=== PATIENT | male | born 1945 | race African-American/Black ===

== ENCOUNTER 2020-10-16 17:02 | Inpatient (IN) | payer MEDICAID, MEDICARE ==
[~2020-10-16] VITALS: Ht 167.6 cm; Wt 71.2 kg
[~2020-10-16 17:02] MED LIST: JANUVIA50 MG ORAL; METFORMIN HCL500 M1 ORAL; METHADONE HCL10 MG PO; NORVASC5 MG ORAL
--- NOTE | 2020-10-16 17:10 | NUR ---
ED Nurse Note: No available bed at this time. ERMD and charge nurse notified.
--- NOTE | 2020-10-16 17:19 | Emergency Room Report ---
History of Present Illness General Chief Complaint: Altered Level of Consciousness Source: Patient, EMS Present Illness HPI Patient is a 75-year-old male with self-reported history of scabies per EMS has a history of hypertension who presents to the ER for altered mental status. Pat ient is alert and oriented x1 to person. Patient is confused and a poor historian. Per EMS patient lives with his brother states he can no longer care for him and he asked them to take him to the hospital. Patient denies any pain. Unable to obtain further history at this time. Unknown baseline mental status. Allergies: Coded Allergies: No Known Allergies (Unverified , 11/05/14) COVID-19 Screening Contact w/high risk pt: No Experienced COVID-19 symptoms?: No COVID-19 Testing performed ROOFING SUPERINTENDENT: No Patient History Reviewed Nursing Documentation: PMH: Agreed; PSxH: Agreed Nursing Documentation-PMH Past Medical History: Deferred Hx Cardiac Problems: Yes - DRUG ABUSE Hx Hypertension: Yes Hx Cancer: No Hx Gastrointestinal Problems: No Hx Neurological Problems: No Review of Systems All Other Systems: negative except mentioned in HPI Physical Exam Vital Signs Date Time Temp Pulse Resp B/P (MAP) Pulse Ox O2 Delivery O2 Flow Rate FiO2 10/16/20 17:06 99.0 64 16 128/76 (93) 97 Room Air Sp02 EP Interpretation: reviewed, normal General Appearance: no apparent distress, alert, non-toxic, other - GCS 14, Chronically Ill Head: normocephalic, atraumatic Eyes: bilateral eye normal inspection, bilateral eye PERRL ENT: hearing grossly normal, normal pharynx, no angioedema, normal voice, dry mucus membranes Neck: full range of motion, supple, no meningismus Respiratory: no respiratory distress, no accessory muscle use Cardiovascular #1: regular rate, rhythm Gastrointestinal: non tender, soft, no guarding, no rebound Rectal: deferred Musculoskeletal: no calf tenderness Neurologic: manager social responsibility III-XII nml as tested, other - Oriented x1 to person not to place or time Psychiatric: no suicidal/homicidal ideation Skin: no rash Lymphatic: no adenopathy Medical Decision Making Diagnostic Impression: Primary Impression: COVID-19 Additional Impressions: Encephalopathy Acute renal failure ER Course Patient tested positive for COVID-19. Patient's chest x-ray demonstrates no acute cardiopulmonary pathology. Patient's vital signs are stable. His D-dimer is elevated to 1.3 and creatinine is also elevated to 1.4. Patient prophylactically started on heparin. Patient will be admitted for further treatment and evaluation. Laboratory Tests Test 10/16/20 18:25 10/16/20 18:30 10/16/20 20:00 White Blood Count 4.0 K/UL (4.8-10.8) L Red Blood Count 5.61 M/UL (4.70-6.10) Hemoglobin 16.5 G/DL (14.2-18.0) Hematocrit 48.3 % (42.0-52.0) Mean Corpuscular Volume 86 FL (80-99) Mean Corpuscular Hemoglobin 29.4 PG (27.0-31.0) Mean Corpuscular Hemoglobin Concent 34.1 G/DL (32.0-36.0) Red Cell Distribution Width 12.2 % (11.6-14.8) Platelet Count 152 K/UL (150-450) Mean Platelet Volume 12.2 FL (6.5-10.1) H Neutrophils (%) (Auto) 66.0 % (45.0-75.0) Lymphocytes (%) (Auto) 25.3 % (20.0-45.0) Monocytes (%) (Auto) 7.3 % (1.0-10.0) Eosinophils (%) (Auto) 1.0 % (0.0-3.0) Basophils (%) (Auto) 0.5 % (0.0-2.0) Prothrombin Time 12.5 SEC (9.30-11.50) H Prothrombin Time INR 1.1 (0.9-1.1) Activated Partial Thromboplast Time 25 SEC (23-33) D-Dimer 1.29 mg/L FEU (0.00-0.49) H Sodium Level 137 MMOL/L (136-145) Potassium Level 3.8 MMOL/L (3.5-5.1) Chloride Level 100 MMOL/L (98-107) Carbon Dioxide Level 27 MMOL/L (21-32) Anion Gap 11 mmol/L (5-15) Blood Urea Nitrogen 25 mg/dL (7-18) H Creatinine 1.4 MG/DL (0.55-1.30) H Estimated Glomerular Filtration Rate 59.5 mL/min (>60) Glucose Level 255 MG/DL (74-106) H Lactic Acid Level 2.30 mmol/L (0.4-2.0) H Pending Calcium Level 8.7 MG/DL (8.5-10.1) Magnesium Level 2.1 MG/DL (1.8-2.4) Ferritin 673 NG/ML (8-388) H Total Bilirubin 0.6 MG/DL (0.2-1.0) Aspartate Amino Transferase (AST) 49 U/L (15-37) H Alanine Aminotransferase (ALT) 57 U/L (12-78) Alkaline Phosphatase 124 U/L (46-116) H Lactate Dehydrogenase 226 U/L (81-234) Total Creatine Kinase 28 U/L (26-308) Troponin I 0.046 ng/mL (0.000-0.056) C-Reactive Protein, Quantitative 2.9 mg/dL (0.00-0.90) H Pro-B-Type Natriuretic Peptide 334 pg/mL (0-125) H Total Protein 8.0 G/DL (6.4-8.2) Albumin 3.0 G/DL (3.4-5.0) L Globulin 5.0 g/dL Albumin/Globulin Ratio 0.6 (1.0-2.7) L Urine Color Yellow Urine Appearance Slightly cloudy Urine pH 5 (4.5-8.0) Urine Specific [place] 1.020 (1.005-1.035) Urine Protein 3+ (NEGATIVE) H Urine Glucose (UA) 1+ (NEGATIVE) H Urine Ketones 3+ (NEGATIVE) H Urine Blood Negative (NEGATIVE) Urine Nitrite Negative (NEGATIVE) Urine Bilirubin 2+ (NEGATIVE) H Urine Ictotest Negative (NEGATIVE) Urine Urobilinogen 12 MG/DL (0.0-1.0) H Urine Leukocyte Esterase 1+ (NEGATIVE) H Urine RBC 0-2 /HPF (0 - 0) H Urine WBC 5-10 /HPF (0 - 0) H Urine Squamous Epithelial Cells Few /LPF (NONE/OCC) Urine Amorphous Sediment Moderate /LPF (NONE) H Urine Bacteria Moderate /HPF (NONE) H Microbiology Date/Time Source Procedure Growth Status 10/16/20 18:25 Nasopharynx SARS-CoV-2 RdRp Gene Assay - Final Complete 10/16/20 18:25 Nasal Nares - Final Complete 10/16/20 18:25 Nasal Nares - Final Complete EKG Diagnostic Results Troponin ordered: Yes When was troponin ordered?: Oct 16, 2020 EKG Time: 19:20 EP Interpretation: Maria Esther Lyn MD Rate: tachycardiac - 105 bpm Rhythm: other - Sinus tachycardia ST Segments: no acute changes ASA given to the pt in ED: No Rhythm Strip Diag. Results Rhythm Strip Time: 18:52 EP Interpretation: yes - Maria Esther Lyn MD Rate: 99 bpm Rhythm: NSR, no PVC's, no ectopy Chest X-Ray Diagnostic Results Chest X-Ray Diagnostic Results : Chest X-Ray Ordered: Yes # of Views/Limited/Complete: 1 View Indication: Other - Altered mental status EP Interpretation: Yes Interpretation: no consolidation, no effusion, no pneumothorax, no acute cardiopulmonary disease Impression: No acute disease Electronically Signed by: Maria Esther Lyn MD Last Vital Signs Date Time Temp Pulse Resp B/P (MAP) Pulse Ox O2 Delivery O2 Flow Rate FiO2 10/16/20 17:06 99.0 64 16 128/76 (93) 97 Room Air Disposition: ADMITTED INPATIENT - Medical Surgical Floor Condition: Critical Physician Consult: Dr. Mcmanus at 2039 Additional Instructions: Please note that this report is being documented using [employer] technology. This can lead to erroneous entry secondary to incorrect interpretation by the dictating instrument. Maria Esther Lyn M.D. Oct 16, 2020 17:19
[2020-10-16 18:09] VITALS: BP 128/76
--- NOTE | 2020-10-16 18:09 | NUR ---
ED Nurse Note: PT PLACED IN BED 5. ARRIVED WITH RA 68 DUE TO INCREASED ALOC, FROM HOME. FAMILY CALLED EMS. PT NOT GIVEN ANYTHING EN ROUTE. PT AOX 1-2, COOPERATIVE.
--- NOTE | 2020-10-16 18:40 | NUR ---
ED Nurse Note: mrsa done at bedside
--- NOTE | 2020-10-16 18:57 | NUR ---
HAND-OFF: Report given to sage marsh.
--- NOTE | 2020-10-16 19:00 | NUR ---
ED Nurse Note: Report received from BEVERLY Lunsford. Patient is in bed with eyes closed. Breathing is normal and even.
[2020-10-16 19:06] LABS: INR 1.1 (0.9-1.1)
[2020-10-16 19:10] LABS: BASOPHILS % (AUTO) 0.5 % (0.0-2.0); HEMATOCRIT 48.3 % (42.0-52.0); HEMOGLOBIN 16.5 G/DL (14.2-18.0); LYMPHOCYTES % (AUTO) 25.3 % (20.0-45.0); MEAN CORPUSCULAR VOLUME 86 FL (80-99); MONOCYTES % (AUTO) 7.3 % (1.0-10.0); PLATELET COUNT 152 K/UL (150-450); RED BLOOD COUNT 5.61 M/UL (4.70-6.10); RED CELL DISTRIBUTION WIDTH 12.2 % (11.6-14.8)
[2020-10-16 19:13] LABS: ANION GAP 11 mmol/L (5-15); BLOOD UREA NITROGEN 25 mg/dL (7-18); CALCIUM 8.7 MG/DL (8.5-10.1); CARBON DIOXIDE 27 MMOL/L (21-32); CHLORIDE 100 MMOL/L (98-107); CREATININE 1.4 MG/DL (0.55-1.30); POTASSIUM 3.8 MMOL/L (3.5-5.1); SODIUM 137 MMOL/L (136-145)
[2020-10-16 19:23] LABS: ALANINE AMINOTRANSFERASE 57 U/L (12-78); ALBUMIN/GLOBULIN RATIO 0.6 (1.0-2.7); ALKALINE PHOSPHATASE 124 U/L (46-116); ASPARTATE AMINO TRANSFERASE 49 U/L (15-37); BILIRUBIN,TOTAL 0.6 MG/DL (0.2-1.0); CREATINE KINASE 28 U/L (26-308)
[2020-10-16] MEDS ORDERED: Dyna-Hex 2% Top Sol 2oz TOPIC ONE (19:30)
[2020-10-16 19:59] VITALS: BP 145/107
--- NOTE | 2020-10-16 19:59 | NUR ---
ED Nurse Note: Repeat lactic drawn and sent to lab.
[2020-10-16 20:04] LABS: APPEARANCE,URINE SLIGHTLY CLOUDY; BILIRUBIN, URINE 2+ (NEGATIVE); GLUCOSE, URINE (UA) 1+ (NEGATIVE); KETONES,URINE 3+ (NEGATIVE); LEUKOCYTE ESTERASE ,URINE 1+ (NEGATIVE); NITRITE,URINE NEGATIVE (NEGATIVE); PH,URINE 5 (4.5-8.0); PROTEIN,URINE 3+ (NEGATIVE); UROBILINOGEN,URINE 12 MG/DL (0.0-1.0)
[2020-10-16 20:05] LABS: COLOR,URINE YELLOW
--- NOTE | 2020-10-16 20:13 | Diagnostic Imaging Report ---
EXAM: CT Head Without Intravenous Contrast CLINICAL HISTORY: AMS TECHNIQUE: Axial computed tomography images of the head/brain without intravenous contrast. CTDI is 53.40 mGy and DLP is 1072.20 mGy-cm. One or more of the following dose reduction techniques were used: automated exposure control, adjustment of the mA and/or kV according to patient size, use of iterative reconstruction technique. COMPARISON: Head CT 11/05/2014 FINDINGS: Brain: No intracranial hemorrhage, mass-effect, or edema. Global parenchymal atrophy and mild chronic microvascular ischemic changes. Ventricles: Unremarkable. Bones/joints: Unremarkable. No fracture. Soft tissues: Unremarkable. Sinuses: Unremarkable as visualized. Mastoid air cells: Unremarkable as visualized. IMPRESSION: 1. No acute intracranial abnormality. 2. Global parenchymal atrophy and mild chronic microvascular ischemic changes.
[2020-10-16] MEDS ORDERED: cefTRIAXone 1 GM in NS 55 ML IVPB ONE (20:45)
[2020-10-16] MEDS ORDERED: Heparin 5000 units/ml inj IV ONE (20:45)
[2020-10-16] MEDS ORDERED: Heparin 25,000u/D5W 500ml 500 ML IV SCH (20:45)
--- NOTE | 2020-10-16 21:30 | NUR ---
ED Nurse Note: Patient is resting in bed, breathing is normal. Repositioned patient for comfort. Safety measures remain in place.
[2020-10-16 22:00] VITALS: BP 145/87
--- NOTE | 2020-10-16 23:00 | NUR ---
ED Nurse Note: Patient is stable for transfer to med surg unit at this time. Patient is awake and alert, verbally responsive. No change in respiratory status. Patient taken to unit via gurney by yusef and RN. Patient transferred to unit with heparin infusing as ordered. IV is intact. He took belongings with him. No signs of distress at time of transfer to unit.
--- NOTE | 2020-10-16 23:15 | NUR ---
NURSE NOTES: Pt is admitted from ER with DX altered mental status in sable condition.Report received from B[facility]LY Varg[facility]. Vitals: temp 97.8 BP 158/82,HR 105 RR 20; O2 sat 96% room air, no pain. Patient is positive for Covid-19, pt placed on droplet and contact precaution.No cough, fever or shortness of breath. Heparin drip is running. Pt is unable to give history, pt can't tell what medication he is taking. Pt has stage 2 wound on sacrum and excoriation on the scrotum, pictures taken. Dr. Mcmanus will be called for admitting orders. Fall precaution in place, bed alarm on. Bed locked low in position,side rails up and call light within reach. Pt will be monitored.
--- NOTE | 2020-10-16 23:50 | NUR ---
NURSE NOTES: Dr. Mcmanus is called for admitting orders, awaiting call back.
[2020-10-17] VITALS: BP 158/82
[2020-10-17 04:00] VITALS: BP 153/87
--- NOTE | 2020-10-17 06:15 | NUR ---
NURSE NOTES: PTT result 145, [facility] called and instructed to hold heparin drip for an hour then start the heparin drip at 9 unit/kg/hr.
--- NOTE | 2020-10-17 06:17 | NUR ---
NURSE NOTES: Heparin drip resumed after holding an hour at 9 unit/kg/hr Addendum: 10/17/20 at 0800 by KAM LATIF RN RN PTT ordered for 1215pm
--- NOTE | 2020-10-17 06:30 | NUR ---
NURSE NOTES: Dr. Mcmanus called back with admission orders, he ordered to continue heparin drip.
[2020-10-17] MEDS ORDERED: Heparin 25,000u/D5W 500ml 500 ML IV SCH ×2 (07:00→07:45)
--- NOTE | 2020-10-17 07:40 | NUR ---
NURSE HAND-OFF: Important Events on Shift:[Pt on heparin drip] Patient Status: [stable] Diet: [NPO] Pending Orders: [] Pending Results/Labs:[] Pending MD notification:[] Latest Vital Signs: Temperature 96.8 , Pulse 95 , B/P 153 /87 , Respiratory Rate 20 , O2 SAT 96 , Room Air, O2 Flow Rate . Vital Sign Comment: [] Latest Adair Fall Score: 70 Fall Risk: High Risk Safety Measures: Call light Within Reach, Bed Alarm Zone 1, Side Rails Side Rails x2, Bed position Low and Locked. Fall Precautions: Yellow Socks Yellow Gown Door Sign Patient Fall Education Report given to [BEVERLY Mccabe, informed Eliot to monitor heparin drip and have the PTT collected at 1215pm].
--- NOTE | 2020-10-17 07:48 | NUR ---
NURSE NOTES: Received report from BEVERLY Garcia. Patient seen in bed, AAOx2 with episodes of confusion. Patient able to state his name and where he is ,but unable to comprehend other instructions. Patient on room air, breathing is even and unlabored with no SOb noted at this time. Patient has a condom cath, draining yellow urine well via gravity. Iv site patent and intact. patient currently on heparin drip with PTT lab draw at 1215. Bed is locked and placed in lowest position with bed alarm on. Call light within reach. Will continue to monitor
[2020-10-17 08:00] VITALS: BP 158/90
--- NOTE | 2020-10-17 08:46 | Diagnostic Imaging Report ---
Indication: Chest pain Technique: One view of the chest Comparison: none Findings: Lungs and pleural spaces are clear. The heart is borderline enlarged. The aorta is tortuous ectatic and calcified. No significant interim change Impression: No acute process
--- NOTE | 2020-10-17 10:35 | NUR ---
Speech Pathology Note (Bedside Dysphagia Evaluation) Brief Note: Mr. Joe is a 75 year old male admitted from Home for COVID 19 positive. He is currently on room air O2 saturation 98%. DDmier: 1.29, Ferritin: 673, LDH: 226, CRP 2.9 CBC: unremarkable Creatine 1.4 Findings: Mr. Joe is alert and oriented to self and place. He knows it is Tien padmini but he thinks the year is 2001. His speech is clear, voice is normal. He does not have teeth. He stated that he eats without dentures. Given him, pureed , thin liquid he tolerated well. He stated he is ok with pureed for now. Interpretation: 1. Functional swallow Plan: 1. Pureed and thin liquid Chuyita Orellana
--- NOTE | 2020-10-17 10:44 | History and Physical Report ---
DATE OF ADMISSION: 10/16/2020 HISTORY OF PRESENT ILLNESS: This is a 75-year-old male, who came with COVID pneumonia and altered mental status. The patient also was found to have high blood pressure. He is responding now. In the emergency room, he was not responsive. PAST MEDICAL HISTORY: Significant for hypertension and diabetes. MEDICATIONS: He is taking metformin, methadone, Januvia. PHYSICAL EXAMINATION: VITAL SIGNS: Blood pressure is 153/57, pulse 95, respirations 20, temperature 96.8. HEENT: AT/NC. EOMI. PERRLA. NECK: Supple. No JVD. CHEST: Bilaterally decreased breath sounds. CARDIOVASCULAR: Regular rhythm. ABDOMEN: Soft. Positive bowel sounds. Nontender. EXTREMITIES: No edema. : Deferred. LABORATORY DATA: White count 4000, hemoglobin 16. Chemistry panel, sodium 137, potassium 3.8, BUN 25, creatinine 1.4. Glucose 255. Urine is positive wbc [address], no acute intracranial abnormality, global atrophy. Chest x-ray showing no acute process. ASSESSMENT: 1. COVID-19 pneumonia. 2. Altered mental status. 3. Diabetes. 4. Chronic pain syndrome. PLAN: We will admit on isolation and start antibiotics, IV fluid, heparin and continue ceftriaxone. Continue Zithromax. Consider Pulmonary consult and ID consult. Murali Mcmanus M.D. DR: FLORI JOB#: [id number] CC:
[2020-10-17] MEDS: NovoLOG Insulin Flexpen SUBQ SCH ×3 (11:48→22:39)
[2020-10-17 12:00] VITALS: BP 150/83
--- NOTE | 2020-10-17 13:18 | NUR ---
NURSE NOTES: PTT at therapeutic level, per Myrna from pharmacy to keep heparin drip at 9 until tomorrow after 0400 PTT draw
--- NOTE | 2020-10-17 14:30 | Consultation ---
DATE OF CONSULTATION: 10/17/2020 CONSULTING PHYSICIAN: Andrew Smith MD. ATTENDING PHYSICIAN: Murali Mcmanus MD. REASON FOR CONSULTATION: COVID-19, elevated inflammatory markers. HISTORY OF PRESENT ILLNESS: This is a 75-year-old male with past medical history of scabies per EMS, hypertension, and diabetes, who presented to the ER with altered mental status. The patient is confused and a poor historian. The patient is alert and oriented x1 to person. Much of the information is obtained from the ER note and his EMR. Per EMS, the patient lived with his brother, who was no longer able to care for him, so he asked EMS to take him to the hospital. Further history is limited by his altered mental status. On evaluation, the patient appears chronically ill, alert and oriented x1 to person, currently saturating well on room air and denies any headache, chest pain, shortness of breath, cough, fever, nausea, vomiting, diarrhea. Chest x-ray showed no acute process. Head CT showed no acute intracranial abnormality, however, revealed global parenchymal atrophy and mild chronic microvascular ischemic changes. Initial laboratory studies showed mild leukocytosis, elevated lactic acid, elevated BUN and creatinine, hyperglycemia, elevated AST, elevated alkaline phosphatase, elevated BNP. Urinalysis notable for possible UTI. The patient was positive for COVID-19 with rapid test. The patient received prophylactic heparin drip due to elevated D-dimer and CRP. The patient is now admitted to the hospital for further workup. PAST MEDICAL HISTORY: Hypertension, diabetes mellitus, scabies. MEDICATIONS: Amlodipine, metformin, methadone, sitagliptin. ALLERGIES: No known allergies. FAMILY HISTORY: Unknown. PERSONAL/SOCIAL HISTORY: Lives with his brother. REVIEW OF SYSTEMS: Negative except mentioned in HPI. PHYSICAL EXAMINATION: VITAL SIGNS: Blood pressure 158/93, heart rate 90, respiratory rate 20, weight 71 kg, height 167 cm. HEENT: Head exam reveals that the head is normocephalic, atraumatic without deformity or unusual swelling. Pupils are PERRLA. CHEST AND LUNGS: Reveals clear, normal, symmetrical breath sounds with no adventitious sounds. CARDIOVASCULAR: Reveals normal S1, S2 without murmurs, rubs, or clicks. ABDOMEN: Soft with no tenderness or organomegaly. RECTAL: Deferred. MUSCULOSKELETAL: There is no tenderness to palpation. Range of motion is normal. NEUROLOGICAL: Alert and oriented x1 to person. SKIN: Hyperpigmentation on his right cheek. LABORATORY DATA: Laboratory testing shows WBC 4.0, hemoglobin 16.5. Chemistry show BUN 25, creatinine 1.4, A1c 9.0, CRP 2.9. Coag panel shows D-dimer 1.29. IMPRESSION: 1. COVID-19 infection with fever. -the patient is currently saturating well on room air. -chest x-ray shows no acute findings. -given his normoxemia with clear chest x-ray findings, he does not need specific therapy for COVID-19 at this point. -monitor for hypoxia, provide supplemental oxygen as needed. 2. Possible UTI. -on Rocephin. 3. Elevated inflammatory markers, D-dimer, CRP. -on empiric heparin drip. 4. ANA. -continue IV fluids. -trend BUN and creatinine. 5. Hyperglycemia. -recommend continuing his metformin. -monitor blood glucose. 6. Hypertension. -recommend continuing his amlodipine. -monitor BP. The care for this patient was discussed with my supervising physician. Time spent for this case was approximately 31 minutes. Andrew Smith M.D. L[place]ON Tsai DR: MAYRA/ZOË JOB#: [id number] CC: SAY
--- NOTE | 2020-10-17 15:00 | NUR ---
NURSE NOTES:WOUND CARE NOTES:Pt presented on admission with multiple Pressure Injuries. Scrotum is erythematous with multiple Partial thickness Pressure Injuries.at base of scrotum. Two Partial thickness Pressure injuries at Sacrum that in in close Proximity(L)4.5cm x (W)6cm. Surrounding wounds is maroon but without induration or fluctuance. Site tender when minimally palpated. Both heels are are firm and easily blanchable. Tx.Plan: Apply Moisture Barrier Paste to Scrotum with each incontinence care. Apply Moisture Barrier Paste to Sacrum. Cover with Optifoam drsg. Change every 3 days and prn. Apply Cavilon Skin Barrier to both heels. Cover each heel with Optifoam drsg . Change every 7 days and prn. Reposition at least every 2hours or as tolerated. Off-load heels with pillow.
--- NOTE | 2020-10-17 15:32 | NUR ---
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 CC: ALOC for unknown amount of time. SI: COVD-19 Temp 99, HR 62, RR-16, BP 128/76 WBC 4.0L, Lactic Acid 2.3 troponin .046, BUN 25, Creatitine 1.4H, Glucose 255 U/A UR leukocyte esterase 1+, WBC 5-10, Bacteria Moderate H IS: Rocephin IV qhs Heparin IV adjust per protocol admit to Med-Surg 403-2 med/surg status DCP: Pending hospitalization Addendum: 10/17/20 at 1548 by KIAN AGUILAR CM ADD UTI to SI:
[2020-10-17 16:00] VITALS: BP 143/80
[2020-10-17] MEDS: metFORMIN 500mg tab ORAL SCH (17:26)
--- NOTE | 2020-10-17 19:15 | Consultation ---
DATE OF CONSULTATION: 10/17/2020 INFECTIOUS DISEASE CONSULTATION This consult is for coverage of Dr. Holliday. CONSULTING PHYSICIAN: David Gordon MD PRIMARY ATTENDING: Gonzales Mcmanus MD REASON FOR CONSULTATION: COVID-19 positive test, pyuria, UTI. HISTORY OF PRESENT ILLNESS: This 75-year-old male admitted yesterday with altered mental status. Patient was confused. He was positive for COVID test. PAST MEDICAL HISTORY: Significant for diabetes mellitus, hypertension. ALLERGIES: No known drug allergies. MEDICATIONS: Getting ceftriaxone, metformin, clonidine, insulin aspart, heparin. SOCIAL HISTORY: . No other history obtainable by the patient. PHYSICAL EXAMINATION: VITAL SIGNS: Temperature 98, pulse 100, blood pressure 168/98. Patient is on room air oxygen and O2 saturation is 97%. GENERAL APPEARANCE: No acute distress. HEART: Tachycardic. LUNGS: Clear. ABDOMEN: Soft, nontender. EXTREMITIES: No edema. NEUROLOGIC: Sleeping. LABORATORY AND DIAGNOSTIC DATA: WBC 4000, hemoglobin 16.5, hematocrit 48.3, platelets 152. Sodium 138, potassium 3.8, chloride 100, bicarb 27, BUN 25, creatinine 1.4, glucose is 255. Chest x-ray was negative. UA showed wbc's of 5 to 10, moderate bacteria, leukocyte esterase 1+, bilirubin 2+, ketones 3+. CT scan of the head, no acute intracranial abnormality. Global atrophy. IMPRESSION: COVID-19 disease, chest x-ray so far is negative. Patient is on room air oxygen. Pyuria. May have UTI. Has acute renal failure, encephalopathy, diabetes mellitus. Had lactic acidosis at the time of admission. RECOMMENDATION: Continue Rocephin and follow up the cultures. At the end of my exam, I thank Dr. Mcmanus, for involving me in the care of this patient. David Gordon M.D. DR: MILDRED JOB#: [id number] CC: SAY
--- NOTE | 2020-10-17 19:26 | NUR ---
NURSE HAND-OFF: Important Events on Shift: Heparin drip on 9 units Patient Status: stable Diet: low sodium Pending Orders: n/a Pending Results/Labs:PTT Pending MD notification:n/a Latest Vital Signs: Temperature 98.9 , Pulse 93 , B/P 143 /80 , Respiratory Rate 19 , O2 SAT 95 , Room Air, O2 Flow Rate . Vital Sign Comment: stable Latest Adair Fall Score: 70 Fall Risk: High Risk Safety Measures: Call light Within Reach, Bed Alarm Zone 1, Side Rails Side Rails x2, Bed position Low and Locked. Fall Precautions: Yellow Socks Door Sign Patient Fall Education Report given to BEVERLY Garcia.
[2020-10-17 20:00] VITALS: BP 154/80
--- NOTE | 2020-10-17 20:00 | NUR ---
NURSE NOTES: Pt is in bed, awake and verbal. No acute distress noted. Room air ,vitals stable. Heparin drip running at 9unit/kg/hr. PTT is scheduled for 0400am tomorrow. NS running at 100ml/hr. Pt will be repositioned frequently. Fall precaution in place. Pt will be monitored.
[2020-10-17] MEDS: cefTRIAXone 1 GM in D5W 55 ML IVPB SCH (22:34)
[2020-10-18] VITALS: BP 154/85
[2020-10-18 04:00] VITALS: BP 145/88
--- NOTE | 2020-10-18 05:00 | NUR ---
NURSE NOTE: PTT 134: holding the heparin drip for an hour starting now.
[2020-10-18] MEDS ORDERED: Heparin 25,000u/D5W 500ml 500 ML IV SCH (06:00)
--- NOTE | 2020-10-18 06:00 | NUR ---
NURSE NOTES: Heparin drip resumed at 6unit/kg/hr. Pt is calm and stable.
[2020-10-18] MEDS: NovoLOG Insulin Flexpen SUBQ SCH ×4 (06:14→21:01)
--- NOTE | 2020-10-18 07:05 | NUR ---
NURSE HAND-OFF: Important Events on Shift:[] Patient Status: [Stable] Diet: [] Pending Orders: [] Pending Results/Labs:[] Pending MD notification:[] Latest Vital Signs: Temperature 98.6 , Pulse 88 , B/P 145 /88 , Respiratory Rate 18 , O2 SAT 94 , Room Air, O2 Flow Rate . Vital Sign Comment: [] Latest Adair Fall Score: 70 Fall Risk: High Risk Safety Measures: Call light Within Reach, Bed Alarm Zone 1, Side Rails Side Rails x2, Bed position Low and Locked. Fall Precautions: Yellow Socks Door Sign Patient Fall Education Report given to [BEVERLY Mccabe, informed to monitor the heparin drip and collect PTT at noon ].
--- NOTE | 2020-10-18 07:19 | NUR ---
NURSE NOTES: Received report from BEVERLY Garcia. Patient seen in bed, AAOx2 with episodes of confusion. Patient able to state his name and where he is ,but unable to comprehend other instructions. Patient on room air, breathing is even and unlabored with no SOb noted at this time. Patient has a condom cath, draining yellow urine well via gravity. Iv site patent and intact. patient currently on heparin drip @6 units with PTT lab draw due @ 1200. Bed is locked and placed in lowest position with bed alarm on. Call light within reach. Will continue to monitor
[2020-10-18 08:00] VITALS: BP 163/100
[2020-10-18] MEDS: metFORMIN 500mg tab ORAL SCH ×2 (08:27→17:09)
--- NOTE | 2020-10-18 08:50 | Pulmonology Progress Note ---
Subjective ROS Limited/Unobtainable: Yes Interval Events: confused Allergies: Coded Allergies: No Known Allergies (Unverified , 11/05/14) Objective Last 24 Hour Vital Signs Date Time Temp Pulse Resp B/P (MAP) Pulse Ox O2 Delivery O2 Flow Rate FiO2 10/18/20 08:27 80 163/100 10/18/20 08:27 163/100 10/18/20 08:00 97.0 80 19 163/100 (121) 95 10/18/20 04:00 98.6 88 18 145/88 (107) 94 10/18/20 00:00 98.2 82 18 154/85 (108) 94 10/17/20 21:00 Room Air 10/17/20 20:00 98.5 87 18 154/80 (104) 95 10/17/20 16:00 98.9 93 19 143/80 (101) 95 10/17/20 13:09 169/98 10/17/20 12:00 98.0 100 20 150/83 (105) 97 10/17/20 09:42 90 158/93 10/17/20 09:00 Room Air Intake and Output 10/17/20 10/18/20 19:00 07:00 Intake Total 100 ml 1255 ml Output Total 600 ml 250 ml Balance -500 ml 1005 ml IV Total 100 ml 1255 ml Output Urine Total 600 ml 250 ml # Voids 2 # Bowel Movements 1 Objective 10/18 saturating well on RA General Appearance: WD/WN HEENT: atraumatic Respiratory: lungs clear Cardiovascular: normal rate, regular rhythm Abdomen: soft, non tender Microbiology Date/Time Source Procedure Growth Status 10/16/20 18:25 Nasopharynx SARS-CoV-2 RdRp Gene Assay - Final Complete 10/16/20 18:25 Nasal Nares - Final Complete 10/16/20 18:25 Nasal Nares - Final Complete Laboratory Tests 10/17/20 11:58: Activated Partial Thromboplast Time 76H 10/17/20 21:58: POC Whole Blood Glucose 196H 10/18/20 04:07: Activated Partial Thromboplast Time 134H Current Medications Medications (Trade) Dose Ordered Sig/Ian Route PRN Reason Start Time Stop Time Status Last Admin Dose Admin Acetaminophen (Tylenol) 650 mg Q4H PRN ORAL Temp >100.5 10/17/20 13:30 11/16/20 13:29 Amlodipine Besylate (Norvasc) 10 mg DAILY ORAL 10/18/20 09:00 11/17/20 08:59 10/18/20 08:27 Ceftriaxone Sodium 1 gm/ Dextrose 55 ml @ 110 mls/hr QHS IVPB 10/17/20 21:00 10/24/20 20:59 10/17/20 22:34 Clonidine HCl (Catapres Tab) 0.1 mg Q6H PRN ORAL For High Blood Pressure 10/17/20 13:15 01/15/21 13:14 10/18/20 08:27 Dextrose (Dextrose 50%) 25 ml Q30M PRN IV Hypoglycemia 10/17/20 10:00 01/15/21 09:59 Dextrose (Dextrose 50%) 50 ml Q30M PRN IV Hypoglycemia 10/17/20 10:00 01/15/21 09:59 Heparin Sodium/ Dextrose 500 ml @ 8.544 mls/ hr ADJUST PER PROTOCOL IV 10/18/20 06:00 11/17/20 05:59 10/18/20 06:12 Insulin Aspart (NovoLOG) BEFORE MEALS AND HS SUBQ 10/17/20 11:30 01/15/21 11:29 10/17/20 22:39 Metformin HCl (Glucophage) 500 mg BID ORAL 10/17/20 18:00 11/16/20 17:59 10/18/20 08:27 Sodium Chloride 1,000 ml @ 100 mls/hr Q10H IV 10/17/20 08:00 11/16/20 07:59 10/18/20 04:00 Assessment/Plan Assessment/Plan 1. COVID-19 infection with fever. -the patient is currently saturating well on room air. -chest x-ray shows no acute findings. -given his normoxemia with clear chest x-ray findings, he does not need specific therapy for COVID-19 at this point. -monitor for hypoxia, provide supplemental oxygen as needed. 2. Possible UTI. -on Rocephin. 3. Elevated inflammatory markers, D-dimer, CRP. -on empiric heparin drip. 4. ANA. -continue IV fluids. -trend BUN and creatinine. 5. Hyperglycemia. - On metformin. - monitor blood glucose. 6. Hypertension. -On amlodipine. - needs better control The care for this patient was discussed with my supervising physician. time spent for this case was approximately 31 minutes. Olayinka Lopez Oct 18, 2020 08:50 Andrew Smith MD Oct 18, 2020 11:24
[2020-10-18 12:00] VITALS: BP 147/75
--- NOTE | 2020-10-18 12:43 | NUR ---
NURSE NOTES: PTT came out 42, RN spoke to Jason from pharmacy to increase dose to 10 units/hr as well as heparin 5000 ml bolus. Scheduled PTT draw in 6 hours
[2020-10-18] MEDS: Heparin 25,000u/D5W 500ml 500 ML IV SCH (12:52)
[2020-10-18] MEDS ORDERED: Heparin 5000 units/ml inj IV SCH (13:00)
--- NOTE | 2020-10-18 13:46 | General Progress Note ---
Subjective Constitutional: Reports: no symptoms HEENT: Reports: no symptoms Cardiovascular: Reports: no symptoms Respiratory: Reports: cough Gastrointestinal/Abdominal: Reports: no symptoms Genitourinary: Reports: no symptoms Neurologic/Psychiatric: Reports: no symptoms Endocrine: Reports: no symptoms Allergies: Coded Allergies: No Known Allergies (Unverified , 11/05/14) Objective Last 24 Hour Vital Signs Date Time Temp Pulse Resp B/P (MAP) Pulse Ox O2 Delivery O2 Flow Rate FiO2 10/18/20 12:00 97.6 83 19 147/75 (99) 96 10/18/20 09:00 Room Air 10/18/20 08:27 80 163/100 10/18/20 08:27 163/100 10/18/20 08:00 97.0 80 19 163/100 (121) 95 10/18/20 04:00 98.6 88 18 145/88 (107) 94 10/18/20 00:00 98.2 82 18 154/85 (108) 94 10/17/20 21:00 Room Air 10/17/20 20:00 98.5 87 18 154/80 (104) 95 10/17/20 16:00 98.9 93 19 143/80 (101) 95 Intake and Output 10/17/20 10/18/20 19:00 07:00 Intake Total 100 ml 1255 ml Output Total 600 ml 250 ml Balance -500 ml 1005 ml IV Total 100 ml 1255 ml Output Urine Total 600 ml 250 ml # Voids 2 # Bowel Movements 1 Laboratory Tests 10/17/20 21:58: POC Whole Blood Glucose 196H 10/18/20 04:07: Activated Partial Thromboplast Time 134H 10/18/20 11:20: POC Whole Blood Glucose 185H 10/18/20 12:00: Activated Partial Thromboplast Time 42H Height (Feet): 5 Height (Inches): 6.00 Weight (Pounds): 200 General Appearance: alert EENT: PERRL/EOMI Neck: supple Cardiovascular: regular rhythm Respiratory/Chest: lungs clear Abdomen: non tender, soft Extremities: non-tender 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
[2020-10-18 16:00] VITALS: BP 144/57
--- NOTE | 2020-10-18 17:09 | Infectious Diseases Prog Note ---
Assessment/Plan Assessment/Plan IMPRESSION: COVID-19 disease, chest x-ray so far is negative. Pyuria. May have UTI. Acute renal failure, Encephalopathy, Diabetes mellitus. Lactic acidosis RECOMMENDATION: Continue Rocephin Will follow up the cultures. Subjective ROS Limited/Unobtainable: Yes Allergies: Coded Allergies: No Known Allergies (Unverified , 11/05/14) Objective Last 24 Hour Vital Signs Date Time Temp Pulse Resp B/P (MAP) Pulse Ox O2 Delivery O2 Flow Rate FiO2 10/18/20 16:00 98.6 86 19 144/57 (86) 94 10/18/20 12:00 97.6 83 19 147/75 (99) 96 10/18/20 09:00 Room Air 10/18/20 08:27 80 163/100 10/18/20 08:27 163/100 10/18/20 08:00 97.0 80 19 163/100 (121) 95 10/18/20 04:00 98.6 88 18 145/88 (107) 94 10/18/20 00:00 98.2 82 18 154/85 (108) 94 10/17/20 21:00 Room Air 10/17/20 20:00 98.5 87 18 154/80 (104) 95 Height (Feet): 5 Height (Inches): 6.00 Weight (Pounds): 200 HEENT: mucous membranes moist Respiratory/Chest: other - oxygen by nasal cannula Cardiovascular: normal rate Abdomen: soft, non tender Extremities: no edema Neurologic/Psychiatric: other - sleeping Microbiology Date/Time Source Procedure Growth Status 10/16/20 18:25 Nasopharynx SARS-CoV-2 RdRp Gene Assay - Final Complete 10/16/20 18:25 Nasal Nares - Final Complete 10/16/20 18:25 Nasal Nares - Final Complete Laboratory Tests Test 10/17/20 21:58 10/18/20 04:07 10/18/20 11:20 10/18/20 12:00 POC Whole Blood Glucose 196 MG/DL (74-106) H 185 MG/DL (74-106) H Activated Partial Thromboplast Time 134 SEC (23-33) H 42 SEC (23-33) H Current Medications Medications (Trade) Dose Ordered Sig/Ian Route PRN Reason Start Time Stop Time Status Last Admin Dose Admin Acetaminophen (Tylenol) 650 mg Q4H PRN ORAL Temp >100.5 10/17/20 13:30 11/16/20 13:29 Amlodipine Besylate (Norvasc) 10 mg DAILY ORAL 10/18/20 09:00 11/17/20 08:59 10/18/20 08:27 Ceftriaxone Sodium 1 gm/ Dextrose 55 ml @ 110 mls/hr QHS IVPB 10/17/20 21:00 10/24/20 20:59 10/17/20 22:34 Clonidine HCl (Catapres Tab) 0.1 mg Q6H PRN ORAL For High Blood Pressure 10/17/20 13:15 01/15/21 13:14 10/18/20 08:27 Dextrose (Dextrose 50%) 25 ml Q30M PRN IV Hypoglycemia 10/17/20 10:00 01/15/21 09:59 Dextrose (Dextrose 50%) 50 ml Q30M PRN IV Hypoglycemia 10/17/20 10:00 01/15/21 09:59 Heparin Sodium/ Dextrose 500 ml @ 14.24 mls/ hr ADJUST PER PROTOCOL IV 10/18/20 13:00 11/17/20 12:59 10/18/20 12:52 Insulin Aspart (NovoLOG) BEFORE MEALS AND HS SUBQ 10/17/20 11:30 01/15/21 11:29 10/18/20 16:27 Metformin HCl (Glucophage) 500 mg BID ORAL 10/17/20 18:00 11/16/20 17:59 10/18/20 08:27 Sodium Chloride 1,000 ml @ 100 mls/hr Q10H IV 10/17/20 08:00 11/16/20 07:59 10/18/20 13:01 David Gordon MD Oct 18, 2020 17:09
--- NOTE | 2020-10-18 19:20 | NUR ---
NURSE NOTES: RECEIVED PATIENT FROM BEVERLY AREVALO. PATIENT IS AWAKE, CALM, RESTING IN BED, AAOX2, ON ROOM AIR, NO ACUTE DISTRESS OR RESPIRATORY DISTRESS NOTED. WOUND DRESSINGS INTACT. PIV INTACT AND PATENT, LEFT ARM RUNNING HEPARIN AT 10 UNIT/KG/HR, AND ON RIGHT ARM RUNNING NS AT 100ML/HR. BED IS LOCKED AND LOW, BED ALARMS ACTIVE, SIDE RAILS UPX2 AND CALL LIGHT IS WITHIN REACH. WILL CONTINUE TO MONITOR CLOSELY.
--- NOTE | 2020-10-18 19:34 | NUR ---
NURSE HAND-OFF: Important Events on Shift: heparin drip running 6 units Patient Status: stable Diet: low sodium Pending Orders: n/a Pending Results/Labs:PTT Pending MD notification:n/a Latest Vital Signs: Temperature 98.6 , Pulse 86 , B/P 144 /57 , Respiratory Rate 19 , O2 SAT 94 , Room Air, O2 Flow Rate . Vital Sign Comment: stable Latest Adair Fall Score: 70 Fall Risk: High Risk Safety Measures: Call light Within Reach, Bed Alarm Zone 1, Side Rails Side Rails x2, Bed position Low and Locked. Fall Precautions: Yellow Socks Door Sign Patient Fall Education Report given to BEVERLY Simon.
[2020-10-18 20:00] VITALS: BP 156/86
[2020-10-18] MEDS: cefTRIAXone 1 GM in D5W 55 ML IVPB SCH (20:57)
[2020-10-19] VITALS: BP 156/93
[2020-10-19 04:00] VITALS: BP 182/93
[2020-10-19] MEDS: NovoLOG Insulin Flexpen SUBQ SCH ×4 (06:30→21:00)
--- NOTE | 2020-10-19 07:16 | NUR ---
NURSE NOTES: Received report from Aurora, RN. Patient seen in bed, AAOx2 with episodes of confusion. Patient able to state his name and where he is. Patient on room air, breathing is even and unlabored with no SOb noted at this time. Patient has a condom cath, draining yellow urine well via gravity. Iv site patent and intact. patient currently on heparin drip @10 units. recent PTT result was therapeutic per Aurora, RN. Drip continued @ 10units. Bed is locked and placed in lowest position with bed alarm on. Call light within reach. Will continue to monitor
--- NOTE | 2020-10-19 07:32 | NUR ---
HAND-OFF: Report given to BEVERLY Mccabe.NURSE NOTES:
[2020-10-19 08:00] VITALS: BP 158/79
[2020-10-19] MEDS: metFORMIN 500mg tab ORAL SCH ×2 (08:41→17:30)
[2020-10-19 12:00] VITALS: BP 149/70
--- NOTE | 2020-10-19 12:22 | Pulmonology Progress Note ---
Subjective ROS Limited/Unobtainable: Yes Interval Events: confused Allergies: Coded Allergies: No Known Allergies (Unverified , 11/05/14) Objective Last 24 Hour Vital Signs Date Time Temp Pulse Resp B/P (MAP) Pulse Ox O2 Delivery O2 Flow Rate FiO2 10/19/20 12:00 97.0 80 18 149/70 (96) 96 10/19/20 09:00 Room Air 10/19/20 08:42 83 158/80 10/19/20 08:00 97.2 85 18 158/79 (105) 97 10/19/20 06:31 182/93 10/19/20 04:00 97.2 86 17 182/93 (122) 97 10/19/20 00:00 97.5 83 17 156/93 (114) 96 10/18/20 21:00 Room Air 10/18/20 20:00 96.4 86 17 156/86 (109) 95 10/18/20 16:00 98.6 86 19 144/57 (86) 94 Intake and Output 10/18/20 10/19/20 19:00 07:00 Intake Total 114.24 ml 566.96 ml Output Total 1000 ml 1300 ml Balance -885.76 ml -733.04 ml IV Total 114.24 ml 566.96 ml Output Urine Total 1000 ml 1300 ml General Appearance: WD/WN HEENT: atraumatic Respiratory: lungs clear Cardiovascular: normal rate, regular rhythm Abdomen: soft, non tender Microbiology Date/Time Source Procedure Growth Status 10/16/20 18:30 Urine,Clean Catch Urine Culture - Preliminary NO GROWTH Resulted 10/16/20 18:25 Nasopharynx SARS-CoV-2 RdRp Gene Assay - Final Complete 10/16/20 18:25 Nasal Nares - Final Complete 10/16/20 18:25 Nasal Nares - Final Complete Laboratory Tests 10/18/20 18:45: Activated Partial Thromboplast Time 93H 10/19/20 04:00: Activated Partial Thromboplast Time 69H 10/19/20 06:33: POC Whole Blood Glucose 137H Current Medications Medications (Trade) Dose Ordered Sig/Ian Route PRN Reason Start Time Stop Time Status Last Admin Dose Admin Acetaminophen (Tylenol) 650 mg Q4H PRN ORAL Temp >100.5 10/17/20 13:30 11/16/20 13:29 Amlodipine Besylate (Norvasc) 10 mg DAILY ORAL 10/18/20 09:00 11/17/20 08:59 10/19/20 08:42 Ceftriaxone Sodium 1 gm/ Dextrose 55 ml @ 110 mls/hr QHS IVPB 10/17/20 21:00 10/24/20 20:59 10/18/20 20:57 Clonidine HCl (Catapres Tab) 0.1 mg Q6H PRN ORAL For High Blood Pressure 10/17/20 13:15 01/15/21 13:14 10/19/20 06:31 Dextrose (Dextrose 50%) 25 ml Q30M PRN IV Hypoglycemia 10/17/20 10:00 01/15/21 09:59 Dextrose (Dextrose 50%) 50 ml Q30M PRN IV Hypoglycemia 10/17/20 10:00 01/15/21 09:59 Heparin Sodium/ Dextrose 500 ml @ 14.24 mls/ hr ADJUST PER PROTOCOL IV 10/18/20 13:00 11/17/20 12:59 10/18/20 12:52 Insulin Aspart (NovoLOG) BEFORE MEALS AND HS SUBQ 10/17/20 11:30 01/15/21 11:29 10/19/20 11:40 Metformin HCl (Glucophage) 500 mg BID ORAL 10/17/20 18:00 11/16/20 17:59 10/19/20 08:41 Sodium Chloride 1,000 ml @ 100 mls/hr Q10H IV 10/17/20 08:00 11/16/20 07:59 10/19/20 09:51 Assessment/Plan Assessment/Plan 1. COVID-19 infection with fever. -the patient is currently saturating well on room air. -chest x-ray shows no acute findings. -given his normoxemia with clear chest x-ray findings, he does not need specific therapy for COVID-19 at this point. -monitor for hypoxia, provide supplemental oxygen as needed. 2. Possible UTI. -on Rocephin. 3. Elevated inflammatory markers, D-dimer, CRP. -on empiric heparin drip. 4. ANA. -continue IV fluids. -trend BUN and creatinine. 5. Hyperglycemia. - On metformin. - monitor blood glucose. 6. Hypertension. -On amlodipine. Andrew Smith MD Oct 19, 2020 12:22
[2020-10-19] MEDS: Heparin 25,000u/D5W 500ml 500 ML IV SCH (12:23)
--- NOTE | 2020-10-19 12:55 | Infectious Diseases Prog Note ---
Assessment/Plan Assessment/Plan IMPRESSION: COVID-19 disease, chest x-ray so far is negative. Pyuria.urine culture: negative Acute renal failure, Encephalopathy, Diabetes mellitus. Lactic acidosis RECOMMENDATION: Discontinue Rocephin Continue isolation Subjective ROS Limited/Unobtainable: Yes Constitutional: Denies: fever Allergies: Coded Allergies: No Known Allergies (Unverified , 11/05/14) Objective Last 24 Hour Vital Signs Date Time Temp Pulse Resp B/P (MAP) Pulse Ox O2 Delivery O2 Flow Rate FiO2 10/19/20 12:00 97.0 80 18 149/70 (96) 96 10/19/20 09:00 Room Air 10/19/20 08:42 83 158/80 10/19/20 08:00 97.2 85 18 158/79 (105) 97 10/19/20 06:31 182/93 10/19/20 04:00 97.2 86 17 182/93 (122) 97 10/19/20 00:00 97.5 83 17 156/93 (114) 96 10/18/20 21:00 Room Air 10/18/20 20:00 96.4 86 17 156/86 (109) 95 10/18/20 16:00 98.6 86 19 144/57 (86) 94 Height (Feet): 5 Height (Inches): 6.00 Weight (Pounds): 200 HEENT: mucous membranes moist Respiratory/Chest: no respiratory distress Cardiovascular: normal rate Abdomen: soft, non tender Extremities: no edema Neurologic/Psychiatric: other - sleeping Microbiology Date/Time Source Procedure Growth Status 10/16/20 18:30 Urine,Clean Catch Urine Culture - Preliminary NO GROWTH Resulted 10/16/20 18:25 Nasopharynx SARS-CoV-2 RdRp Gene Assay - Final Complete 10/16/20 18:25 Nasal Nares - Final Complete 10/16/20 18:25 Nasal Nares - Final Complete Laboratory Tests Test 10/18/20 18:45 10/19/20 04:00 10/19/20 06:33 Activated Partial Thromboplast Time 93 SEC (23-33) H 69 SEC (23-33) H POC Whole Blood Glucose 137 MG/DL (74-106) H Current Medications Medications (Trade) Dose Ordered Sig/Ian Route PRN Reason Start Time Stop Time Status Last Admin Dose Admin Acetaminophen (Tylenol) 650 mg Q4H PRN ORAL Temp >100.5 10/17/20 13:30 11/16/20 13:29 Amlodipine Besylate (Norvasc) 10 mg DAILY ORAL 10/18/20 09:00 11/17/20 08:59 10/19/20 08:42 Ceftriaxone Sodium 1 gm/ Dextrose 55 ml @ 110 mls/hr QHS IVPB 10/17/20 21:00 10/24/20 20:59 10/18/20 20:57 Clonidine HCl (Catapres Tab) 0.1 mg Q6H PRN ORAL For High Blood Pressure 10/17/20 13:15 01/15/21 13:14 10/19/20 06:31 Dextrose (Dextrose 50%) 25 ml Q30M PRN IV Hypoglycemia 10/17/20 10:00 01/15/21 09:59 Dextrose (Dextrose 50%) 50 ml Q30M PRN IV Hypoglycemia 10/17/20 10:00 01/15/21 09:59 Heparin Sodium/ Dextrose 500 ml @ 14.24 mls/ hr ADJUST PER PROTOCOL IV 10/18/20 13:00 11/17/20 12:59 10/19/20 12:23 Insulin Aspart (NovoLOG) BEFORE MEALS AND HS SUBQ 10/17/20 11:30 01/15/21 11:29 10/19/20 11:40 Metformin HCl (Glucophage) 500 mg BID ORAL 10/17/20 18:00 11/16/20 17:59 10/19/20 08:41 Sodium Chloride 1,000 ml @ 100 mls/hr Q10H IV 10/17/20 08:00 11/16/20 07:59 10/19/20 09:51 David Gordon MD Oct 19, 2020 12:55
--- NOTE | 2020-10-19 15:10 | General Progress Note ---
Subjective Constitutional: Reports: malaise Respiratory: Reports: cough Allergies: Coded Allergies: No Known Allergies (Unverified , 11/05/14) Subjective doing ok Objective Last 24 Hour Vital Signs Date Time Temp Pulse Resp B/P (MAP) Pulse Ox O2 Delivery O2 Flow Rate FiO2 10/19/20 12:00 97.0 80 18 149/70 (96) 96 10/19/20 09:00 Room Air 10/19/20 08:42 83 158/80 10/19/20 08:00 97.2 85 18 158/79 (105) 97 10/19/20 06:31 182/93 10/19/20 04:00 97.2 86 17 182/93 (122) 97 10/19/20 00:00 97.5 83 17 156/93 (114) 96 10/18/20 21:00 Room Air 10/18/20 20:00 96.4 86 17 156/86 (109) 95 10/18/20 16:00 98.6 86 19 144/57 (86) 94 Intake and Output 10/18/20 10/19/20 19:00 07:00 Intake Total 114.24 ml 566.96 ml Output Total 1000 ml 1300 ml Balance -885.76 ml -733.04 ml IV Total 114.24 ml 566.96 ml Output Urine Total 1000 ml 1300 ml Laboratory Tests 10/18/20 18:45: Activated Partial Thromboplast Time 93H 10/19/20 04:00: Activated Partial Thromboplast Time 69H 10/19/20 06:33: POC Whole Blood Glucose 137H Height (Feet): 5 Height (Inches): 6.00 Weight (Pounds): 200 General Appearance: alert EENT: PERRL/EOMI Neck: supple Cardiovascular: regular rhythm Respiratory/Chest: crackles/rales Abdomen: non tender, soft Extremities: non-tender Assessment/Plan Assessment/Plan: covid 19 dm dm neuropathy htn waekness cont isolation cont curerent tx Gonzales Mcmanus MD Oct 19, 2020 15:10
[2020-10-19 16:00] VITALS: BP 130/69
--- NOTE | 2020-10-19 19:25 | NUR ---
NURSE HAND-OFF: Important Events on Shift:heparin drip 10 units, PTT tomorrow AM Patient Status: stable Diet: low sodium Pending Orders: n/a Pending Results/Labs:PTT 10/20 Pending MD notification:n/a Latest Vital Signs: Temperature 97.5 , Pulse 87 , B/P 130 /69 , Respiratory Rate 18 , O2 SAT 96 , Room Air, O2 Flow Rate . Vital Sign Comment: stable Latest Adair Fall Score: 70 Fall Risk: High Risk Safety Measures: Call light Within Reach, Bed Alarm Zone 1, Side Rails Side Rails x2, Bed position Low and Locked. Fall Precautions: Yellow Socks Door Sign Patient Fall Education Report given to BEVERLY Garcia.
--- NOTE | 2020-10-19 19:40 | NUR ---
NURSE NOTES: The patient is alert and oriented x2 and does not seem to be in any distress at this time. The Resp is even and unlabored.The patient currently on heparin dwith PTT lab draw due @ 04am. Patient has a condom cath, draining yellow urine under gravity. Iv site left hand 22g is patent and asymptomatic.patent and intact Bed is locked and placed in lowest position with bed alarm on. Call light within reach. Will continue to monitor
[2020-10-19 20:00] VITALS: BP 136/73
[2020-10-20] VITALS: BP 139/81
[2020-10-20] MEDS: Heparin 25,000u/D5W 500ml 500 ML IV SCH (01:36)
[2020-10-20 04:00] VITALS: BP 128/74
[2020-10-20] MEDS ORDERED: Heparin 5000 units/ml inj IV SCH (05:30)
[2020-10-20] MEDS ORDERED: Heparin 25,000u/D5W 500ml 500 ML IV SCH (05:30)
[2020-10-20] MEDS: NovoLOG Insulin Flexpen SUBQ SCH ×4 (06:30→20:53)
--- NOTE | 2020-10-20 07:50 | NUR ---
NURSE NOTES: received report from BEVERLY Garcia. patient alert to name. verbally responsive. no respiratory distress on room air. no pain at this time. IV on RAC running Heparin drip rate at17.08 since 0630. PTT at 1230. IV on LH running NS@100. condom cath draining. yellow. no foul odor. bedbound. bed in the lowest position and locked. call light within reach, alarm on. positive covid. PPE at all times.
--- NOTE | 2020-10-20 07:59 | NUR ---
NURSE HAND-OFF: Important Events on Shift:Alert and oriented x3 Patient Status: Diet: Pending Orders: Pending Results/Labs:PTT] Pending MD notification: Latest Vital Signs: Temperature 98.4 , Pulse 71 , B/P 128 /74 , Respiratory Rate 17 , O2 SAT 95 , Room Air, O2 Flow Rate . Vital Sign Comment: Latest Adair Fall Score: 70 Fall Risk: High Risk Safety Measures: Call light Within Reach, Bed Alarm Zone 1, Side Rails Side Rails x2, Bed position Low and Locked. Fall Precautions: Yellow Socks Door Sign Patient Fall Education Report given to .
[2020-10-20 08:00] VITALS: BP 170/93
[2020-10-20] MEDS: metFORMIN 500mg tab ORAL SCH ×2 (08:59→17:07)
--- NOTE | 2020-10-20 09:53 | Pulmonology Progress Note ---
Subjective ROS Limited/Unobtainable: Yes Interval Events: confused Constitutional: Denies: fever Allergies: Coded Allergies: No Known Allergies (Unverified , 11/05/14) Objective Last 24 Hour Vital Signs Date Time Temp Pulse Resp B/P (MAP) Pulse Ox O2 Delivery O2 Flow Rate FiO2 10/20/20 08:59 91 170/93 10/20/20 08:58 170/93 10/20/20 08:00 97.9 91 18 170/93 (118) 94 10/20/20 04:00 98.4 71 17 128/74 (92) 95 10/20/20 00:00 97.1 79 19 139/81 (100) 98 10/19/20 21:00 Room Air 10/19/20 20:00 97.5 84 20 136/73 (94) 97 10/19/20 16:00 97.5 87 18 130/69 (89) 96 10/19/20 12:00 97.0 80 18 149/70 (96) 96 Intake and Output 10/19/20 10/20/20 19:00 07:00 Intake Total 640 ml 940 ml Output Total 1400 ml 920 ml Balance -760 ml 20 ml Intake Oral 540 ml 240 ml IV Total 100 ml 700 ml Output Urine Total 1400 ml 920 ml # Bowel Movements 1 General Appearance: WD/WN HEENT: atraumatic Respiratory: lungs clear Cardiovascular: normal rate, regular rhythm Abdomen: soft, non tender Laboratory Tests 10/19/20 11:38: POC Whole Blood Glucose 158H 10/19/20 16:26: POC Whole Blood Glucose 181H 10/20/20 04:15: Activated Partial Thromboplast Time 57H 10/20/20 04:52: POC Whole Blood Glucose 136H Current Medications Medications (Trade) Dose Ordered Sig/Ian Route PRN Reason Start Time Stop Time Status Last Admin Dose Admin Acetaminophen (Tylenol) 650 mg Q4H PRN ORAL Temp >100.5 10/17/20 13:30 11/16/20 13:29 Amlodipine Besylate (Norvasc) 10 mg DAILY ORAL 10/18/20 09:00 11/17/20 08:59 10/20/20 08:59 Clonidine HCl (Catapres Tab) 0.1 mg Q6H PRN ORAL For High Blood Pressure 10/17/20 13:15 01/15/21 13:14 10/20/20 08:58 Dextrose (Dextrose 50%) 25 ml Q30M PRN IV Hypoglycemia 10/17/20 10:00 01/15/21 09:59 Dextrose (Dextrose 50%) 50 ml Q30M PRN IV Hypoglycemia 10/17/20 10:00 01/15/21 09:59 Heparin Sodium/ Dextrose 500 ml @ 17.088 mls/ hr ADJUST PER PROTOCOL IV 10/20/20 05:30 11/19/20 05:29 10/20/20 06:29 Insulin Aspart (NovoLOG) BEFORE MEALS AND HS SUBQ 10/17/20 11:30 01/15/21 11:29 10/19/20 16:29 Metformin HCl (Glucophage) 500 mg BID ORAL 10/17/20 18:00 11/16/20 17:59 10/20/20 08:59 Sodium Chloride 1,000 ml @ 100 mls/hr Q10H IV 10/17/20 08:00 11/16/20 07:59 10/20/20 06:15 Assessment/Plan Assessment/Plan Assessment/Plan 1. COVID-19 infection -the patient is currently saturating well With 2L/N/C Sat 94% -chest x-ray shows no acute findings. -given his normoxemia with clear chest x-ray findings, he does not need specific therapy for COVID-19 at this point. -monitor for hypoxia, provide supplemental oxygen as needed. 2. Possible UTI. -on Rocephin. 3. Elevated inflammatory markers, D-dimer, CRP. -on empiric heparin drip. 4. ANA. -continue IV fluids. -trend BUN and creatinine. 5. Hyperglycemia. - On metformin. - monitor blood glucose. 6. Hypertension. -On amlodipine. Marcos Godinez NP Oct 20, 2020 09:53
[2020-10-20 12:00] VITALS: BP 141/82
--- NOTE | 2020-10-20 12:28 | General Progress Note ---
Subjective Allergies: Coded Allergies: No Known Allergies (Unverified , 11/05/14) Subjective doing ok Objective Last 24 Hour Vital Signs Date Time Temp Pulse Resp B/P (MAP) Pulse Ox O2 Delivery O2 Flow Rate FiO2 10/20/20 12:00 98.2 98 18 141/82 (101) 93 10/20/20 09:00 Room Air 10/20/20 08:59 91 170/93 10/20/20 08:58 170/93 10/20/20 08:00 97.9 91 18 170/93 (118) 94 10/20/20 04:00 98.4 71 17 128/74 (92) 95 10/20/20 00:00 97.1 79 19 139/81 (100) 98 10/19/20 21:00 Room Air 10/19/20 20:00 97.5 84 20 136/73 (94) 97 10/19/20 16:00 97.5 87 18 130/69 (89) 96 Intake and Output 10/19/20 10/20/20 19:00 07:00 Intake Total 640 ml 940 ml Output Total 1400 ml 920 ml Balance -760 ml 20 ml Intake Oral 540 ml 240 ml IV Total 100 ml 700 ml Output Urine Total 1400 ml 920 ml # Bowel Movements 1 Laboratory Tests 10/19/20 16:26: POC Whole Blood Glucose 181H 10/20/20 04:15: Activated Partial Thromboplast Time 57H 10/20/20 04:52: POC Whole Blood Glucose 136H 10/20/20 11:33: POC Whole Blood Glucose [Pending] Height (Feet): 5 Height (Inches): 6.00 Weight (Pounds): 200 General Appearance: alert EENT: PERRL/EOMI Neck: supple Cardiovascular: regular rhythm Respiratory/Chest: crackles/rales Abdomen: non tender, soft Extremities: non-tender 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
[2020-10-20 16:00] VITALS: BP 140/79
--- NOTE | 2020-10-20 19:03 | NUR ---
NURSE HAND-OFF: Important Events on Shift:DC heparin drip. CM consult for discharge to SNF. IV fluid Patient Status: weak. alert to name. forgetful and confused. Diet: low sodium pureed moist thin liquid Pending Orders: n/a Pending Results/Labs:n/a Pending MD notification:n/a Latest Vital Signs: Temperature 98.1 , Pulse 66 , B/P 140 /79 , Respiratory Rate 18 , O2 SAT 95 , Room Air, O2 Flow Rate . Vital Sign Comment:episode of HTN. otherwise stable Latest Adair Fall Score: 70 Fall Risk: High Risk Safety Measures: Call light Within Reach, Bed Alarm Zone 1, Side Rails Side Rails x2, Bed position Low and Locked. Fall Precautions: Yellow Socks Door Sign Patient Fall Education Report given to BEVERLY Armstrong.
--- NOTE | 2020-10-20 19:54 | NUR ---
NURSE NOTES: Pt. received from BEVERLY Dior. Pt. AAO x1 to name, breathing even and unlabored on room air, no indications of respiratory distress, no indications of pain. IV left hand 22g with NS at 100cc, IV right AC 20g intact and patent. Bed low and locked, side rails x3 up, bed alarm active, and call light in reach.
[2020-10-20 20:00] VITALS: BP 142/84
[2020-10-21] VITALS: BP 148/89
[2020-10-21 04:00] VITALS: BP 154/102
[2020-10-21] MEDS: NovoLOG Insulin Flexpen SUBQ SCH ×4 (06:14→21:00)
--- NOTE | 2020-10-21 06:55 | NUR ---
NURSE HAND-OFF: Important Events on Shift:[pt. blood sugar stable, pt. verbal and able to communicate needs] Patient Status: stable Diet: low sodium Pending Orders: na Pending Results/Labs:na Pending MD notification:[na] Latest Vital Signs: Temperature 97.7 , Pulse 83 , B/P 154 /102 , Respiratory Rate 17 , O2 SAT 94 , Room Air, O2 Flow Rate . Vital Sign Comment: [stable] Latest Adair Fall Score: 70 Fall Risk: High Risk Safety Measures: Call light Within Reach, Bed Alarm Zone 1, Side Rails Side Rails x2, Bed position Low and Locked. Fall Precautions: Yellow Socks Door Sign Patient Fall Education Report given to .
--- NOTE | 2020-10-21 07:26 | NUR ---
HAND-OFF: Report given to BEVERLY Patel.
[2020-10-21 08:00] VITALS: BP 178/98
[2020-10-21] MEDS: metFORMIN 500mg tab ORAL SCH ×2 (08:55→18:00)
--- NOTE | 2020-10-21 09:05 | Pulmonology Progress Note ---
Subjective ROS Limited/Unobtainable: Yes Interval Events: none major reported per nursing Constitutional: Denies: fever Allergies: Coded Allergies: No Known Allergies (Unverified , 11/05/14) Objective Last 24 Hour Vital Signs Date Time Temp Pulse Resp B/P (MAP) Pulse Ox O2 Delivery O2 Flow Rate FiO2 10/21/20 08:55 92 178/98 10/21/20 08:55 178/98 10/21/20 08:00 98.4 92 18 178/98 (124) 93 10/21/20 04:00 97.7 83 17 154/102 (119) 94 10/21/20 00:00 96.4 80 16 148/89 (108) 93 10/20/20 21:00 Room Air 10/20/20 20:00 97.5 84 16 142/84 (103) 93 10/20/20 16:00 98.1 66 18 140/79 (99) 95 10/20/20 12:00 98.2 98 18 141/82 (101) 93 Intake and Output 10/20/20 10/21/20 19:00 07:00 Intake Total 1680 ml 1360 ml Output Total 600 ml 400 ml Balance 1080 ml 960 ml Intake Oral 480 ml IV Total 1200 ml 1000 ml Other 360 ml Output Urine Total 600 ml 400 ml # Bowel Movements 1 Objective 10/21 no change 10/18 saturating well on RA General Appearance: WD/WN HEENT: atraumatic Respiratory: lungs clear Cardiovascular: normal rate, regular rhythm Abdomen: soft, non tender Laboratory Tests 10/20/20 11:33: POC Whole Blood Glucose [Pending] 10/20/20 12:28: Activated Partial Thromboplast Time 117H Current Medications Medications (Trade) Dose Ordered Sig/Ian Route PRN Reason Start Time Stop Time Status Last Admin Dose Admin Acetaminophen (Tylenol) 650 mg Q4H PRN ORAL Temp >100.5 10/17/20 13:30 11/16/20 13:29 Amlodipine Besylate (Norvasc) 10 mg DAILY ORAL 10/18/20 09:00 11/17/20 08:59 10/21/20 08:55 Clonidine HCl (Catapres Tab) 0.1 mg Q6H PRN ORAL For High Blood Pressure 10/17/20 13:15 01/15/21 13:14 10/21/20 08:55 Dextrose (Dextrose 50%) 25 ml Q30M PRN IV Hypoglycemia 10/17/20 10:00 01/15/21 09:59 Dextrose (Dextrose 50%) 50 ml Q30M PRN IV Hypoglycemia 10/17/20 10:00 01/15/21 09:59 Insulin Aspart (NovoLOG) BEFORE MEALS AND HS SUBQ 10/17/20 11:30 01/15/21 11:29 10/20/20 20:53 Metformin HCl (Glucophage) 500 mg BID ORAL 10/17/20 18:00 11/16/20 17:59 10/21/20 08:55 Sodium Chloride 1,000 ml @ 100 mls/hr Q10H IV 10/17/20 08:00 11/16/20 07:59 10/21/20 03:26 Assessment/Plan Assessment/Plan 1. COVID-19 infection -the patient is currently saturating well on RA -chest x-ray shows no acute findings. -given his normoxemia with clear chest x-ray findings, he does not need specific therapy for COVID-19 at this point. -monitor for hypoxia, provide supplemental oxygen as needed. 2. Possible UTI. - s/p Rocephin. - follow up urine culture showed no growth 3. Elevated inflammatory markers, D-dimer, CRP. -s/p heparin drip. 4. ANA. -on IV fluids. 5. Hyperglycemia. - On metformin. - monitor blood glucose. 6. Hypertension. -On amlodipine. - needs better control dc planning back to SNF; per CM The care for this patient was discussed with my supervising physician Time spent for this case was approximately 31 minutes Olayinka Lopez Oct 21, 2020 09:05
--- NOTE | 2020-10-21 09:30 | NUR ---
CHARGE NURSE NOTE: No signs of distress, or pain noted. Pt needs PT. notified, order obtained. pt had a BM, cleaned, repositioned.
--- NOTE | 2020-10-21 10:18 | NUR ---
RD ASSESSMENT & RECOMMENDATIONS SEE CARE ACTIVITY FOR COMPLETE ASSESSMENT DAILY ESTIMATED NEEDS: Needs based on Pulmonary, wound, DM 66kg abw 25-35 kcals/kg 5189-6205 total kcals 1.25-1.5 g protein/kg 83-99 g total protein 25-30 mL/kg 2240-3284 total fluid mLs NUTRITION DIAGNOSIS: Increased pro needs r/t wound healing as evidenced by partial thickness wound x2. CURRENT DIET: Low Na / puree diet PO DIET RECOMMENDATIONS: Maintain Low Na diet/ texture per ROTOR WINDER ADDITIONAL RECOMMENDATIONS: 1) Add Glucerna 1 tetra TID w/ meals 2) Skin integrity: add TIFFANIE FRUIT PUNCH BID 3) Updated chem panel as able 4) Maintain accurate bed scale wts 5) Snacks in b/w meals as tolerated, 1:1 feeds
--- NOTE | 2020-10-21 10:44 | General Progress Note ---
Subjective Allergies: Coded Allergies: No Known Allergies (Unverified , 11/05/14) Subjective doing ok weakness Objective Last 24 Hour Vital Signs Date Time Temp Pulse Resp B/P (MAP) Pulse Ox O2 Delivery O2 Flow Rate FiO2 10/21/20 08:55 92 178/98 10/21/20 08:55 178/98 10/21/20 08:00 98.4 92 18 178/98 (124) 93 10/21/20 04:00 97.7 83 17 154/102 (119) 94 10/21/20 00:00 96.4 80 16 148/89 (108) 93 10/20/20 21:00 Room Air 10/20/20 20:00 97.5 84 16 142/84 (103) 93 10/20/20 16:00 98.1 66 18 140/79 (99) 95 10/20/20 12:00 98.2 98 18 141/82 (101) 93 Intake and Output 0 10/20/20 10/21/20 19:00 07:00 Intake Total 1680 ml 1360 ml Output Total 600 ml 400 ml Balance 1080 ml 960 ml Intake Oral 480 ml IV Total 1200 ml 1000 ml Other 360 ml Output Urine Total 600 ml 400 ml # Bowel Movements 1 Laboratory Tests 10/20/20 11:33: POC Whole Blood Glucose [Pending] 10/20/20 12:28: Activated Partial Thromboplast Time 117H Height (Feet): 5 Height (Inches): 6.00 Weight (Pounds): 200 General Appearance: alert EENT: PERRL/EOMI Neck: supple Cardiovascular: regular rhythm Respiratory/Chest: crackles/rales Abdomen: non tender, soft Genitourinary/Rectal: other - sacral decubti stage 3-4 Assessment/Plan Assessment/Plan: covid 19 dm dm neuropathy htn waekness sacral decubti wound care cont isolation cont curerent tx Gonzales Esposito cm, MD Oct 21, 2020 10:44
[2020-10-21 12:00] VITALS: BP 163/84
--- NOTE | 2020-10-21 12:00 | NUR ---
NURSE NOTES: Blood sugar checked, 128. No insulin for this parameter. pt does not have an appetite, ate 50% of his breakfast, and 10% of his lunch, was encouraged to eat.
--- NOTE | 2020-10-21 12:03 | Infectious Diseases Prog Note ---
Assessment/Plan Assessment/Plan antibiotics : none A 1. * COVID 19 pneumonia on room air with 95 % saturation 2. diabetes mellitus P 1. continue off antibiotics 2. continue isolation Subjective Constitutional: Denies: fever, chills Respiratory: Denies: shortness of breath, dry cough Gastrointestinal/Abdominal: Denies: nausea, vomiting, diarrhea Musculoskeletal: Denies: pain Allergies: Coded Allergies: No Known Allergies (Unverified , 11/05/14) Objective Last 24 Hour Vital Signs Date Time Temp Pulse Resp B/P (MAP) Pulse Ox O2 Delivery O2 Flow Rate FiO2 10/21/20 08:55 92 178/98 10/21/20 08:55 178/98 10/21/20 08:00 98.4 92 18 178/98 (124) 93 10/21/20 04:00 97.7 83 17 154/102 (119) 94 10/21/20 00:00 96.4 80 16 148/89 (108) 93 10/20/20 21:00 Room Air 10/20/20 20:00 97.5 84 16 142/84 (103) 93 10/20/20 16:00 98.1 66 18 140/79 (99) 95 Height (Feet): 5 Height (Inches): 6.00 Weight (Pounds): 200 Laboratory Tests Test 10/20/20 12:28 10/20/20 16:21 10/20/20 20:47 10/21/20 06:11 Activated Partial Thromboplast Time 117 SEC (23-33) H POC Whole Blood Glucose Pending 149 MG/DL (74-106) H 122 MG/DL (74-106) H Current Medications Medications (Trade) Dose Ordered Sig/Ian Route PRN Reason Start Time Stop Time Status Last Admin Dose Admin Acetaminophen (Tylenol) 650 mg Q4H PRN ORAL Temp >100.5 10/17/20 13:30 11/16/20 13:29 Amlodipine Besylate (Norvasc) 10 mg DAILY ORAL 10/18/20 09:00 11/17/20 08:59 10/21/20 08:55 Clonidine HCl (Catapres Tab) 0.1 mg Q6H PRN ORAL For High Blood Pressure 10/17/20 13:15 01/15/21 13:14 10/21/20 08:55 Dextrose (Dextrose 50%) 25 ml Q30M PRN IV Hypoglycemia 10/17/20 10:00 01/15/21 09:59 Dextrose (Dextrose 50%) 50 ml Q30M PRN IV Hypoglycemia 10/17/20 10:00 01/15/21 09:59 Insulin Aspart (NovoLOG) BEFORE MEALS AND HS SUBQ 10/17/20 11:30 01/15/21 11:29 10/20/20 20:53 Metformin HCl (Glucophage) 500 mg BID ORAL 10/17/20 18:00 11/16/20 17:59 10/21/20 08:55 Sodium Chloride 1,000 ml @ 100 mls/hr Q10H IV 10/17/20 08:00 11/16/20 07:59 10/21/20 03:26 Ashok Holliday MD Oct 21, 2020 12:03
--- NOTE | 2020-10-21 14:41 | NUR ---
DISCHARGE PLANNING PATIENT HAS BEEN REFERRED TO [facility] P [phone] F [phone] S/W NATHANAEL AT [facility] WHO INFORMED THERE ARE NO BEDS AVAILABLE TODAY. ANTICIPATED BED AVAILABILITY FOR 10/22/20. CM TO FOLLOW UP IN AM FOR BED ASSIGNMENT.
[2020-10-21 16:00] VITALS: BP 132/77
--- NOTE | 2020-10-21 16:03 | NUR ---
CASE MANAGEMENT:REVIEW SI;COVID PNEUMONIA. AC KIDNEY FAILURE. 98.4 92 18 178/98 93% ON RA IS;AMLODIPINE PO QD IVF NS @ 100 ML/HR METFORMIN PO BID MED SURG STATUS DCP;FROM HOME PLAN; DC PLANNING TO SNF PATIENT HAS BEEN REFERRED TO AND ACCEPTED AT [facility] PENDING BED AVAILABILITY ANTICIPATED ON 10/22/20
--- NOTE | 2020-10-21 19:32 | NUR ---
NURSE NOTES: received report from sage chowdary. patient on bed, asleep. on room air, no sob. denies any pain or discomfort. per epi, " PT on the case for discharge placement/planning'. reiterated to call and ask for assistance to prevent fall or injury. call light and light button within easy reach. bed locked and in lowest position. will continue plan of care.
--- NOTE | 2020-10-21 19:35 | NUR ---
HAND-OFF: Report given to Naomi Amaya RN.
[2020-10-21 20:00] VITALS: BP 144/80
[2020-10-22] VITALS: BP_SYST 131; BP_SYST 160; BP_DIAS 86; BP_DIAS 87
[2020-10-22 04:00] VITALS: BP 147/89
[2020-10-22] MEDS: NovoLOG Insulin Flexpen SUBQ SCH ×4 (06:11→20:26)
--- NOTE | 2020-10-22 06:40 | NUR ---
NURSE HAND-OFF: Important Events on Shift: blood sugar monitoring; Patient Status:stable Diet: los na diet Pending Orders: Pending Results/Labs: Pending MD notification: Latest Vital Signs: Temperature 98.2 , Pulse 78 , B/P 147 /89 , Respiratory Rate 19 , O2 SAT 95 , Room Air, O2 Flow Rate . Vital Sign Comment: Latest Adair Fall Score: 70 Fall Risk: High Risk Safety Measures: Call light Within Reach, Bed Alarm Zone 1, Side Rails Side Rails x2, Bed position Low and Locked. Fall Precautions: Yellow Socks Door Sign Patient Fall Education Addendum: 10/22/20 at 0718 by Junie Amaya RN HAND-OFF: Report given to sage santamaria.
--- NOTE | 2020-10-22 07:34 | NUR ---
NURSE NOTES: Report received from BEVERLY Blancas. Pt awake in bed, alert and oriented x 2, no SOB, bed in lowest position breaks engaged and alarm on, denies any pain at this time, IV line present and intact, on room air, on contact and droplet precautions for COVID 19, will continue to monitor and proceed with plan of care, call light within reach.
[2020-10-22 08:00] VITALS: BP 150/90
--- NOTE | 2020-10-22 08:25 | Pulmonology Progress Note ---
Subjective ROS Limited/Unobtainable: Yes Interval Events: none major reported per nursing Constitutional: Reports: no symptoms; Denies: fever, chills HEENT: Repors: no symptoms Respiratory: Reports: no symptoms Cardiovascular: Reports: no symptoms Gastrointestinal/Abdominal: Reports: no symptoms; Denies: nausea, vomiting, diarrhea Musculoskeletal: Denies: pain Allergies: Coded Allergies: No Known Allergies (Unverified , 11/05/14) Objective Last 24 Hour Vital Signs Date Time Temp Pulse Resp B/P (MAP) Pulse Ox O2 Delivery O2 Flow Rate FiO2 10/22/20 04:00 98.2 78 19 147/89 (108) 95 10/22/20 00:26 169/94 10/22/20 00:00 98.2 89 19 160/87 (111) 94 10/21/20 21:00 Room Air 10/21/20 20:00 97.6 83 16 144/80 (101) 94 10/21/20 16:00 98.1 85 18 132/77 (95) 95 10/21/20 12:00 97.9 89 18 163/84 (110) 95 89 10/21/20 09:00 Room Air 10/21/20 08:55 92 178/98 10/21/20 08:55 178/98 Intake and Output 10/21/20 10/22/20 19:00 07:00 Intake Total 700 ml 350 ml Output Total 700 ml 400 ml Balance 0 ml -50 ml Intake Oral 350 ml IV Total 700 ml Output Urine Total 700 ml 400 ml # Bowel Movements 1 Objective 10/22 remains on room air 10/21 no change 10/18 saturating well on RA General Appearance: WD/WN HEENT: atraumatic Respiratory: lungs clear Cardiovascular: normal rate, regular rhythm Abdomen: soft, non tender Laboratory Tests 10/21/20 11:53: POC Whole Blood Glucose 128H 10/21/20 16:12: POC Whole Blood Glucose 143H Current Medications Medications (Trade) Dose Ordered Sig/Ian Route PRN Reason Start Time Stop Time Status Last Admin Dose Admin Acetaminophen (Tylenol) 650 mg Q4H PRN ORAL Temp >100.5 10/17/20 13:30 11/16/20 13:29 Amlodipine Besylate (Norvasc) 10 mg DAILY ORAL 10/18/20 09:00 11/17/20 08:59 10/21/20 08:55 Clonidine HCl (Catapres Tab) 0.1 mg Q6H PRN ORAL For High Blood Pressure 10/17/20 13:15 01/15/21 13:14 10/22/20 00:26 Dextrose (Dextrose 50%) 25 ml Q30M PRN IV Hypoglycemia 10/17/20 10:00 01/15/21 09:59 Dextrose (Dextrose 50%) 50 ml Q30M PRN IV Hypoglycemia 10/17/20 10:00 01/15/21 09:59 Insulin Aspart (NovoLOG) BEFORE MEALS AND HS SUBQ 10/17/20 11:30 01/15/21 11:29 10/21/20 16:48 Metformin HCl (Glucophage) 500 mg BID ORAL 10/17/20 18:00 11/16/20 17:59 10/21/20 08:55 Sodium Chloride 1,000 ml @ 100 mls/hr Q10H IV 10/17/20 08:00 11/16/20 07:59 10/22/20 07:03 Assessment/Plan Assessment/Plan 1. COVID-19 infection -the patient is currently saturating well on RA -chest x-ray shows no acute findings. -given his normoxemia with clear chest x-ray findings, he does not need specific therapy for COVID-19 at this point. -monitor for hypoxia, provide supplemental oxygen as needed. 2. Possible UTI. - s/p Rocephin. - follow up urine culture showed no growth 3. Elevated inflammatory markers, D-dimer, CRP. -s/p heparin drip. 4. ANA. -on IV fluids. 5. Hyperglycemia. - On metformin. - monitor blood glucose. 6. Hypertension. -On amlodipine. - needs better control 7. weakness on arrival - PT eval today dc planning to SNF; per CM The care for this patient was discussed with my supervising physician Time spent for this case was approximately 31 minutes Olayinka Lopez Oct 22, 2020 08:25
[2020-10-22] MEDS: metFORMIN 500mg tab ORAL SCH ×2 (08:35→17:19)
--- NOTE | 2020-10-22 09:20 | NUR ---
PT EVALUATION NOTE Patient seen for initial evaluation and treatment initiated. Patient presents with decreased strength and balance which impairs patient's ability to perform mobility tasks. Patient requires mod/max assist for bed mobility, has poor head and trunk control in sitting, required max assist to maintain sitting at the EOB. Patient unable to stand or ambulate at this time due to weakness. Patient will benefit from skilled inpatient PT intervention to increase strength and postural stability for improved level of functional mobility and safety. Recommend discharge to SNF for continued rehab once medically cleared by MD. Patient may benefit from use of FWW initially for transfers and ambulation. Addendum: 10/22/20 at 1237 by BARBARA HUERTA PT Amended: Links added.
[2020-10-22 12:00] VITALS: BP 165/95
--- NOTE | 2020-10-22 13:15 | Infectious Diseases Prog Note ---
Assessment/Plan Assessment/Plan IMPRESSION: COVID-19 disease, chest x-ray so far is negative. Pyuria.urine culture: negative Acute renal failure, Encephalopathy, Diabetes mellitus. Lactic acidosis RECOMMENDATION: Observe off antibiotic Continue isolation Subjective ROS Limited/Unobtainable: No Constitutional: Reports: no symptoms Respiratory: Reports: no symptoms Gastrointestinal/Abdominal: Reports: no symptoms Genitourinary: Reports: no symptoms Allergies: Coded Allergies: No Known Allergies (Unverified , 11/05/14) Objective Last 24 Hour Vital Signs Date Time Temp Pulse Resp B/P (MAP) Pulse Ox O2 Delivery O2 Flow Rate FiO2 10/22/20 12:14 165/95 10/22/20 12:00 98.2 83 16 165/95 (118) 95 10/22/20 09:00 Room Air 10/22/20 08:35 78 147/89 10/22/20 08:00 98.1 87 19 150/90 (110) 95 10/22/20 04:00 98.2 78 19 147/89 (108) 95 10/22/20 00:26 169/94 10/22/20 00:00 98.2 89 19 160/87 (111) 94 10/21/20 21:00 Room Air 10/21/20 20:00 97.6 83 16 144/80 (101) 94 10/21/20 16:00 98.1 85 18 132/77 (95) 95 Height (Feet): 5 Height (Inches): 6.00 Weight (Pounds): 200 General Appearance: no acute distress HEENT: mucous membranes moist Respiratory/Chest: no respiratory distress Cardiovascular: normal rate Abdomen: soft, non tender Extremities: no edema Neurologic/Psychiatric: alert, responsive Laboratory Tests Test 10/21/20 16:12 10/22/20 11:36 POC Whole Blood Glucose 143 MG/DL (74-106) H 133 MG/DL (74-106) H Current Medications Medications (Trade) Dose Ordered Sig/Ian Route PRN Reason Start Time Stop Time Status Last Admin Dose Admin Acetaminophen (Tylenol) 650 mg Q4H PRN ORAL Temp >100.5 10/17/20 13:30 11/16/20 13:29 Amlodipine Besylate (Norvasc) 10 mg DAILY ORAL 10/18/20 09:00 11/17/20 08:59 10/22/20 08:35 Clonidine HCl (Catapres Tab) 0.1 mg Q6H PRN ORAL For High Blood Pressure 10/17/20 13:15 01/15/21 13:14 10/22/20 12:14 Dextrose (Dextrose 50%) 25 ml Q30M PRN IV Hypoglycemia 10/17/20 10:00 01/15/21 09:59 Dextrose (Dextrose 50%) 50 ml Q30M PRN IV Hypoglycemia 10/17/20 10:00 01/15/21 09:59 Insulin Aspart (NovoLOG) BEFORE MEALS AND HS SUBQ 10/17/20 11:30 01/15/21 11:29 10/21/20 16:48 Metformin HCl (Glucophage) 500 mg BID ORAL 10/17/20 18:00 11/16/20 17:59 10/22/20 08:35 Sodium Chloride 1,000 ml @ 100 mls/hr Q10H IV 10/17/20 08:00 11/16/20 07:59 10/22/20 07:03 David Gordon MD Oct 22, 2020 13:15
--- NOTE | 2020-10-22 13:16 | NUR ---
DISCHARGE PLANNING FOLLOW UP MADE TO [facility]. S/W SUNSHINE WHO CONFIRMED PATIENT WILL ADMIT TO BED 45-A SKILLED SUNSHINE REQUESTS FOR PATIENT TO ARRIVE AFTER 8 PM D/T NUMEROUS BED CHANGES CURRENTLY BEING MADE AND ROOM CLEANING DR KENDRICK INFORMED AND GAVE TO/RB TO DC THIS EVENING AT 8 PM. NOTED AND CARRIED OUT. [facility] TRAN[facility]ORT[facility] SCHEDULED WITH [facility] EXT [id number] WITH ETA @ 1999 PER MELLISA
--- NOTE | 2020-10-22 15:14 | General Progress Note ---
Subjective Allergies: Coded Allergies: No Known Allergies (Unverified , 11/05/14) Subjective doing ok weakness improving unable to walk Objective Last 24 Hour Vital Signs Date Time Temp Pulse Resp B/P (MAP) Pulse Ox O2 Delivery O2 Flow Rate FiO2 10/22/20 12:14 165/95 10/22/20 12:00 98.2 83 16 165/95 (118) 95 10/22/20 09:00 Room Air 10/22/20 08:35 78 147/89 10/22/20 08:00 98.1 87 19 150/90 (110) 95 10/22/20 04:00 98.2 78 19 147/89 (108) 95 10/22/20 00:26 169/94 10/22/20 00:00 98.2 89 19 160/87 (111) 94 10/21/20 21:00 Room Air 10/21/20 20:00 97.6 83 16 144/80 (101) 94 10/21/20 16:00 98.1 85 18 132/77 (95) 95 Intake and Output 10/21/20 10/22/20 19:00 07:00 Intake Total 700 ml 350 ml Output Total 700 ml 400 ml Balance 0 ml -50 ml Intake Oral 350 ml IV Total 700 ml Output Urine Total 700 ml 400 ml # Bowel Movements 1 Laboratory Tests 10/21/20 16:12: POC Whole Blood Glucose 143H 10/22/20 11:36: POC Whole Blood Glucose 133H Height (Feet): 5 Height (Inches): 6.00 Weight (Pounds): 200 General Appearance: alert EENT: PERRL/EOMI Neck: supple Cardiovascular: regular rhythm Respiratory/Chest: lungs clear Abdomen: non tender, soft Extremities: non-tender Assessment/Plan Assessment/Plan: covid 19 dm dm neuropathy htn waekness sacral decubti wound care cont isolation dc to snf with po abx 1800 ada diet need amulance kelle cm and charge nurse Gonzales Mcmanus MD Oct 22, 2020 15:14
[2020-10-22] MEDS ORDERED: ACETAMINOPHEN325 M1 ORAL (15:23)
[2020-10-22] MEDS ORDERED: AMLODIPINE BESY10 MG ORAL (15:24)
[2020-10-22] MEDS ORDERED: CATAPRES0.1 MG ORAL (15:25)
[2020-10-22] MEDS ORDERED: INSULIN AS100 UNIT/2 SQ (15:26)
[2020-10-22 16:00] VITALS: BP 154/96
--- NOTE | 2020-10-22 19:22 | NUR ---
NURSE HAND-OFF: Important Events on Shift:[pending discharge to [facility], monitoring labs and VS, assisting with ADLS, PT eval] Patient Status: [stable] Diet: [Low Na pureed moist] Pending Orders: [] Pending Results/Labs:[] Pending MD notification:[] Latest Vital Signs: Temperature 98.2 , Pulse 89 , B/P 154 /96 , Respiratory Rate 19 , O2 SAT 95 , Room Air, O2 Flow Rate . Vital Sign Comment: [] Latest Adair Fall Score: 70 Fall Risk: High Risk Safety Measures: Call light Within Reach, Bed Alarm Zone 1, Side Rails Side Rails x2, Bed position Low and Locked. Fall Precautions: Yellow Socks Door Sign Patient Fall Education Report given to [BEVERLY Blancas].
--- NOTE | 2020-10-22 19:32 | NUR ---
NURSE NOTES: received report from sage santamaria. patient on bed, asleep. on room air, no sob. denies any pain or discomfort. per hina, patient is for discharge to [facility] 45-a at 2000 under [facility] " iv access on the left forearm and right ac. reiterated to call and ask for assistance to prevent fall or injury. call light and light button within easy reach. bed locked and in lowest position. will continue plan of care.
[2020-10-22 20:00] VITALS: BP 153/89
--- NOTE | 2020-10-22 20:00 | NUR ---
NURSE NOTES: Charge nurse followed up ETA for [facility] with 45 mins, delay. BEVERLY dey ([facility]) made aware
--- NOTE | 2020-10-22 20:45 | NUR ---
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 charge nurse made aware
--- NOTE | 2020-10-22 22:15 | NUR ---
NURSE NOTES: spoke to lilli from [facility], " delay of 30 mins". charge nurse made aware
[2020-10-23] VITALS: BP 163/92
--- NOTE | 2020-10-23 00:07 | NUR ---
NURSE NOTES: [facility] came and report given. vitals taken by the EMT with blood pressure of 158/83 mmhg, clonidine was given at 2030 for bp of 190's.patient is in stable condition with a hx hypertensive and bp is ranging from 130- 190's through out the hospitalization. BEVERLY dey of [facility] made aware. charge nurse spoke to the EMT that the patient is stable to go.
--- NOTE | 2020-10-23 00:45 | NUR ---
NURSE NOTES: [facility] refused to take the patient. EMT refused to take to transport the patient. charge nurse made aware. rn traffic maintenance supervisor is informed
--- NOTE | 2020-10-23 02:00 | NUR ---
NURSE NOTES: md baez that the patient didn't get discharge. charge nurse made aware
[2020-10-23 04:00] VITALS: BP 151/86
[2020-10-23] MEDS: NovoLOG Insulin Flexpen SUBQ SCH ×3 (05:55→16:30)
--- NOTE | 2020-10-23 06:23 | NUR ---
NURSE HAND-OFF: Important Events on Shift: pending for discharge; md aware of the pt not discharge. charge nurse and RN millwright supervisor aware of the situation; current bp is 151/86 Patient Status: stable Diet: low na diet pureed moist Pending Orders: Pending Results/Labs: Pending MD notification: Latest Vital Signs: Temperature 98.2 , Pulse 85 , B/P 151 /86 , Respiratory Rate 20 , O2 SAT 95 , Room Air, O2 Flow Rate . Vital Sign Comment: Latest Adair Fall Score: 70 Fall Risk: High Risk Safety Measures: Call light Within Reach, Bed Alarm Zone 1, Side Rails Side Rails x2, Bed position Low and Locked. Fall Precautions: Yellow Socks Door Sign Patient Fall Education Addendum: 10/23/20 at 0709 by Junie Amaya RN HAND-OFF: Report given to sage santamaria.
--- NOTE | 2020-10-23 07:11 | NUR ---
NURSE NOTES: Report received from BEVERLY Blancas. Pt awake in bed, alert and oriented x 2-3, no SOB, bed in lowest position breaks engaged and alarm on, denies any pain at this time, IV line present and intact, on room air, on contact and droplet precautions for COVID 19, will continue to monitor and proceed with plan of care, call light within reach. Pt is pending for discharge.
[2020-10-23 08:00] VITALS: BP 180/97
--- NOTE | 2020-10-23 08:54 | Pulmonology Progress Note ---
Subjective ROS Limited/Unobtainable: No Interval Events: dc held yesterday due to elevated BP Constitutional: Reports: no symptoms HEENT: Repors: no symptoms Respiratory: Reports: no symptoms Cardiovascular: Reports: no symptoms Gastrointestinal/Abdominal: Reports: no symptoms Musculoskeletal: Denies: pain Allergies: Coded Allergies: No Known Allergies (Unverified , 11/05/14) Objective Last 24 Hour Vital Signs Date Time Temp Pulse Resp B/P (MAP) Pulse Ox O2 Delivery O2 Flow Rate FiO2 10/23/20 04:00 98.2 85 20 151/86 (107) 95 10/23/20 00:00 97.9 83 18 163/92 (115) 98 10/22/20 21:00 Room Air 10/22/20 20:00 98.2 81 18 153/89 (110) 97 10/22/20 19:43 190/99 10/22/20 16:00 98.2 89 19 154/96 (115) 95 10/22/20 12:14 165/95 10/22/20 12:00 98.2 83 16 165/95 (118) 95 10/22/20 09:00 Room Air Intake and Output 10/22/20 10/23/20 19:00 07:00 Intake Total 540 ml 240 ml Output Total 1000 ml Balance -460 ml 240 ml Intake Oral 540 ml 240 ml Output Urine Total 1000 ml # Voids 4 Objective 10/23 no change; HTN 10/22 remains on room air 10/21 no change 10/18 saturating well on RA General Appearance: WD/WN HEENT: atraumatic Respiratory: lungs clear Cardiovascular: normal rate, regular rhythm Abdomen: soft, non tender Laboratory Tests 10/22/20 11:36: POC Whole Blood Glucose 133H 10/22/20 20:20: POC Whole Blood Glucose 179H Current Medications Medications (Trade) Dose Ordered Sig/Ian Route PRN Reason Start Time Stop Time Status Last Admin Dose Admin Acetaminophen (Tylenol) 650 mg Q4H PRN ORAL Temp >100.5 10/17/20 13:30 11/16/20 13:29 Amlodipine Besylate (Norvasc) 10 mg DAILY ORAL 10/18/20 09:00 11/17/20 08:59 10/22/20 08:35 Clonidine HCl (Catapres TTS-1) 1 patch QWEEK TDERMAL 10/23/20 10:00 3/30/21 09:59 Clonidine HCl (Catapres Tab) 0.1 mg Q6H PRN ORAL For High Blood Pressure 10/17/20 13:15 01/15/21 13:14 10/22/20 19:43 Dextrose (Dextrose 50%) 25 ml Q30M PRN IV Hypoglycemia 10/17/20 10:00 01/15/21 09:59 Dextrose (Dextrose 50%) 50 ml Q30M PRN IV Hypoglycemia 10/17/20 10:00 01/15/21 09:59 Insulin Aspart (NovoLOG) BEFORE MEALS AND HS SUBQ 10/17/20 11:30 01/15/21 11:29 10/22/20 20:26 Metformin HCl (Glucophage) 500 mg BID ORAL 10/17/20 18:00 11/16/20 17:59 10/22/20 08:35 Sodium Chloride 1,000 ml @ 100 mls/hr Q10H IV 10/17/20 08:00 11/16/20 07:59 10/23/20 03:52 Assessment/Plan Assessment/Plan 1. COVID-19 infection -the patient is currently saturating well on RA -chest x-ray shows no acute findings. -given his normoxemia with clear chest x-ray findings, he does not need specific therapy for COVID-19 at this point. -monitor for hypoxia, provide supplemental oxygen as needed. 2. Possible UTI. - s/p Rocephin. - follow up urine culture showed no growth 3. Elevated inflammatory markers, D-dimer, CRP. -s/p heparin drip. 4. ANA. -on IV fluids. 5. Hyperglycemia. - On metformin. - monitor blood glucose. 6. Hypertension. -On amlodipine. - needs better control 7. weakness on arrival - PT marlon recommends placement in SNF due to need for maximal assistance with mobility dc planning to SNF; per CM dc held yesterday due to HTN The care for this patient was discussed with my supervising physician Time spent for this case was approximately 31 minutes Olayinka Lopez Oct 23, 2020 08:54
[2020-10-23] MEDS: metFORMIN 500mg tab ORAL SCH ×2 (09:17→17:01)
--- NOTE | 2020-10-23 11:55 | Infectious Diseases Prog Note ---
Assessment/Plan Assessment/Plan antibiotics : none A 1. * COVID 19 pneumonia on room air with 95 % saturation 2. diabetes mellitus P 1. continue off antibiotics 2. continue isolation Subjective Constitutional: Denies: fever, chills Respiratory: Denies: shortness of breath, dry cough Gastrointestinal/Abdominal: Denies: nausea, vomiting, diarrhea Musculoskeletal: Denies: pain Allergies: Coded Allergies: No Known Allergies (Unverified , 11/05/14) Objective Last 24 Hour Vital Signs Date Time Temp Pulse Resp B/P (MAP) Pulse Ox O2 Delivery O2 Flow Rate FiO2 10/23/20 09:19 180/97 10/23/20 09:18 87 180/97 10/23/20 09:00 Room Air 10/23/20 08:00 97.6 87 18 180/97 (124) 97 10/23/20 04:00 98.2 85 20 151/86 (107) 95 10/23/20 00:00 97.9 83 18 163/92 (115) 98 10/22/20 21:00 Room Air 10/22/20 20:00 98.2 81 18 153/89 (110) 97 10/22/20 19:43 190/99 10/22/20 16:00 98.2 89 19 154/96 (115) 95 10/22/20 12:14 165/95 10/22/20 12:00 98.2 83 16 165/95 (118) 95 Height (Feet): 5 Height (Inches): 6.00 Weight (Pounds): 200 Laboratory Tests Test 10/22/20 20:20 10/23/20 11:20 POC Whole Blood Glucose 179 MG/DL (74-106) H 160 MG/DL (74-106) H Current Medications Medications (Trade) Dose Ordered Sig/Ian Route PRN Reason Start Time Stop Time Status Last Admin Dose Admin Acetaminophen (Tylenol) 650 mg Q4H PRN ORAL Temp >100.5 10/17/20 13:30 11/16/20 13:29 Amlodipine Besylate (Norvasc) 10 mg DAILY ORAL 10/18/20 09:00 11/17/20 08:59 10/23/20 09:18 Clonidine HCl (Catapres TTS-1) 1 patch QWEEK TDERMAL 10/23/20 10:00 01/21/21 09:59 10/23/20 09:19 Clonidine HCl (Catapres Tab) 0.1 mg Q6H PRN ORAL For High Blood Pressure 10/17/20 13:15 01/15/21 13:14 10/22/20 19:43 Dextrose (Dextrose 50%) 25 ml Q30M PRN IV Hypoglycemia 10/17/20 10:00 01/15/21 09:59 Dextrose (Dextrose 50%) 50 ml Q30M PRN IV Hypoglycemia 10/17/20 10:00 01/15/21 09:59 Insulin Aspart (NovoLOG) BEFORE MEALS AND HS SUBQ 10/17/20 11:30 01/15/21 11:29 10/23/20 11:21 Metformin HCl (Glucophage) 500 mg BID ORAL 10/17/20 18:00 11/16/20 17:59 10/23/20 09:17 Sodium Chloride 1,000 ml @ 100 mls/hr Q10H IV 10/17/20 08:00 11/16/20 07:59 10/23/20 03:52 Ashok Holliday MD Oct 23, 2020 11:55
[2020-10-23 12:00] VITALS: BP 161/90
--- NOTE | 2020-10-23 14:20 | General Progress Note ---
Subjective Allergies: Coded Allergies: No Known Allergies (Unverified , 11/05/14) Subjective doing ok weakness improving unable to walk Objective Last 24 Hour Vital Signs Date Time Temp Pulse Resp B/P (MAP) Pulse Ox O2 Delivery O2 Flow Rate FiO2 10/23/20 13:03 161/90 10/23/20 12:00 98.1 87 18 161/90 (113) 95 10/23/20 09:19 180/97 10/23/20 09:18 87 180/97 10/23/20 09:00 Room Air 10/23/20 08:00 97.6 87 18 180/97 (124) 97 10/23/20 04:00 98.2 85 20 151/86 (107) 95 10/23/20 00:00 97.9 83 18 163/92 (115) 98 10/22/20 21:00 Room Air 10/22/20 20:00 98.2 81 18 153/89 (110) 97 10/22/20 19:43 190/99 10/22/20 16:00 98.2 89 19 154/96 (115) 95 Intake and Output 10/22/20 10/23/20 19:00 07:00 Intake Total 540 ml 240 ml Output Total 1000 ml Balance -460 ml 240 ml Intake Oral 540 ml 240 ml Output Urine Total 1000 ml # Voids 4 Laboratory Tests 10/22/20 20:20: POC Whole Blood Glucose 179H 10/23/20 11:20: POC Whole Blood Glucose 160H Height (Feet): 5 Height (Inches): 6.00 Weight (Pounds): 200 General Appearance: alert EENT: PERRL/EOMI Neck: supple Cardiovascular: regular rhythm Respiratory/Chest: crackles/rales Abdomen: non tender, soft Assessment/Plan Assessment/Plan: covid 19 dm dm neuropathy htn waekness sacral decubti wound care cont isolation dc to snf with po abx 1800 ada diet need amulance dw cm and charge nurse Gonzales Mcmanus MD Oct 23, 2020 14:20
--- NOTE | 2020-10-23 14:42 | NUR ---
[employer] ARCHITECT NOTE S/W PATIENTS SON MENG WHO CALLED WITH CONCERN IN RE TO SNF PLACEMENT. PER MENG, PATIENT AND FAMILY WANT HIM TO RETURN HOME UPON DC. RN CHRIS AWARE.
--- NOTE | 2020-10-23 14:44 | NUR ---
CASE MANAGEMENT:REVIEW SI;COVID PNEUMONIA. AC KIDNEY FAILURE. 98.2 87 18 180/97 95% ON RA BG 160 IS;CLONIDINE PATCH TDERMAL QWEEK NORVASC PO QD CLONIDINE PO Q6 PRN IVF NS @ 100 ML/HE MED SURG STATUS DCP;FROM HOME PLAN; STABILIZE BP DC PLANNING HOME
--- NOTE | 2020-10-23 15:27 | NUR ---
*-*DISCHARGE PLANNING*-* PATIENT HAS BEEN REFERRED TO: [facility] P: [phone]
[2020-10-23] MEDS: Lisinopril 20mg tab ORAL SCH ×2 (15:41→17:01)
--- NOTE | 2020-10-23 15:41 | NUR ---
*-*DISCHARGE PLANNING*-* PATIENT HAS BEEN REFERRED TO: [facility] P: [phone] S/W SHANNAN, INTAKE NOT AVAILABLE, WILL CALL BACK.
[2020-10-23 16:00] VITALS: BP 128/71
[2020-10-23 17:01] VITALS: BP 128/71
--- NOTE | 2020-10-23 17:43 | NUR ---
*-*DISCHARGE PLANNING*-* PATIENT HAS BEEN REFERRED TO: [facility] P: [phone] S/W CHUCK, WILL CONTACT INTAKE , TO CALL BACK IN REGARDS TO SERVICING THIS PATIENT UPON DISCHARGE PLAN.
--- NOTE | 2020-10-23 19:42 | NUR ---
NURSE NOTES: Patient was discharged home in stable condition at 1940, picked up by son. Discharge paper works completed. All belongings sent with pt. Prescriptions given to son. IV line and ID band removed. No c/o any discomfort upon discharge.
== END 2020-10-23 19:35 | disposition home health service (06) | DRG 178 ==
LOC: EDBD 17:02 → EMR 17:30 → 4E 18:47 → EDBEDREQ 21:23 → 4E 22:37 → UNDODISIN 10-22 23:40
DX: U07.1 COVID-19 (principal); N17.9 Acute kidney failure, unspecified; N39.0 Urinary tract infection, site not specified; E87.2 Acidosis; G93.40 Encephalopathy, unspecified; E11.9 Type 2 diabetes mellitus without complications; G89.4 Chronic pain syndrome; I10 Essential (primary) hypertension; Z79.84 Long term (current) use of oral hypoglycemic drugs; E11.65 Type 2 diabetes mellitus with hyperglycemia; E11.40 Type 2 diabetes mellitus with diabetic neuropathy, unspecified; R53.1 Weakness; L89.159 Pressure ulcer of sacral region, unspecified stage
CPT/HCPCS: 36415; 70450; 71045; 80053; 81003; 82550; 82728; 82962; 83036; 83605; 83615; 83735; 83880; 84484; 85025; 85379; 85610; 85730; 86140; 86710; 86850; 86900; 86901; 87040; 87086; 93005; 96361; 96365; 96375; 99285; J1815; J7030; U0002

== ENCOUNTER 2020-11-27 14:42 | Inpatient (IN) | payer MEDICARE ==
[~2020-11-27] VITALS: Ht 162.6 cm; Wt 54.4 kg
[~2020-11-27 14:42] MED LIST changes: +ACETAMINOPHEN325 M1 ORAL; +AMLODIPINE BESY10 MG ORAL; +CATAPRES0.1 MG ORAL; +INSULIN AS100 UNIT/2 SQ
--- NOTE | 2020-11-27 14:50 | NUR ---
ED Nurse Note: pt brought in to ER by shavon with WC from home due to sudden weakness. grandson reported pt fell down from bed but unknown for head trauma. pt very fatigue but able to pivot with assist from to [facility]. pt responds slowly but aao x4. cooperative and calm but fatigue. pt denied chest pain and does not recall if he hit his head or not. no bump noted on her head. no SOB, cough, fever noted at this time. changed to gown and on cardiac cath technologist. very dry skin with old scars noted. no bleeding or new bruises noted at this time.
--- NOTE | 2020-11-27 15:04 | NUR ---
ED Nurse Note: pt taken to CT in stable condition.
[2020-11-27 15:22] LABS: BASOPHILS % (AUTO) 1.2 % (0.0-2.0); EOSINOPHILS % (AUTO) 2.6 % (0.0-3.0); HEMATOCRIT 46.5 % (42.0-52.0); HEMOGLOBIN 14.5 G/DL (14.2-18.0); LYMPHOCYTES % (AUTO) 40.6 % (20.0-45.0); MEAN CORPUSCULAR VOLUME 91 FL (80-99); MONOCYTES % (AUTO) 6.3 % (1.0-10.0); NEUTROPHILS % (AUTO) 49.2 % (45.0-75.0); PLATELET COUNT 209 K/UL (150-450); RED BLOOD COUNT 5.11 M/UL (4.70-6.10); RED CELL DISTRIBUTION WIDTH 13.2 % (11.6-14.8)
[2020-11-27 15:26] LABS: ANION GAP 12 mmol/L (5-15); BLOOD UREA NITROGEN 20 mg/dL (7-18); CALCIUM 9.6 MG/DL (8.5-10.1); CARBON DIOXIDE 28 MMOL/L (21-32); CHLORIDE 101 MMOL/L (98-107); CREATININE 1.2 MG/DL (0.55-1.30); POTASSIUM 3.5 MMOL/L (3.5-5.1); SODIUM 141 MMOL/L (136-145)
[2020-11-27 15:31] LABS: ALANINE AMINOTRANSFERASE 57 U/L (12-78); ALBUMIN 3.4 G/DL (3.4-5.0); ALBUMIN/GLOBULIN RATIO 0.7 (1.0-2.7); ALKALINE PHOSPHATASE 82 U/L (46-116); ASPARTATE AMINO TRANSFERASE 29 U/L (15-37); BILIRUBIN,TOTAL 0.6 MG/DL (0.2-1.0)
--- NOTE | 2020-11-27 15:37 | Diagnostic Imaging Report ---
Indication: Cough Technique: One view of the chest Comparison: 10/16/2020 Findings: Suboptimal inspiration. Linear bands of atelectasis or scarring are seen at both lung bases. The heart size is normal. The aorta is tortuous and ectatic. Findings are unchanged Impression: No acute process
--- NOTE | 2020-11-27 15:40 | Diagnostic Imaging Report ---
Indications: Head pain, status post fall Technique: Spiral acquisitions obtained through the brain. Angled axial and coronal 5 x 5 mm slices were reconstructed. Total dose length product 1098 mGycm. CTDI vol(s) 53 mGy. Dose reduction achieved using automated exposure control Comparison: 10/16/2020 Findings: There is age-related enlargement of the ventricles and extra axial CSF spaces. There is periventricular deep white matter low-attenuation, consistent with chronic microvascular ischemic change. The calvarium is intact. The mastoids are clear. Visualized orbits and sinuses are unremarkable. Findings are unchanged Impression: Chronic and age-related changes. Negative for acute intracranial bleed or mass effect. The CT scanner at [facility] is accredited by the [employer] and the scans are performed using protocols designed to limit radiation exposure to as low as reasonably achievable to attain images of sufficient resolution adequate for diagnostic evaluation.
[2020-11-27 16:09] VITALS: BP 122/71
--- NOTE | 2020-11-27 16:20 | Emergency Room Report ---
History of Present Illness General Chief Complaint: Generalized Weakness Source: Patient (Rosy Salas) Present Illness HPI 75 YO male presents to the ED for evaluation of AMS & Fall. Pt. was found down at home next to his bed by his grandson. This was an unwitnessed event. HPI and ROS are limited due to pt. mental status, and grandson being a poor historian regarding pt. medical hx and details about today's event. Pt. himself denies pain. He denies neck pain or tenderness. He denies CP, palpitations, cough, or SOB. He denies CAMPOVERDE He reports he has DM but doesn't take his medication. Both pt. and grandson are do not know wether he is on a blood thinning medication. (Rosy Salas) Allergies: Coded Allergies: No Known Allergies (Unverified , 11/05/14) COVID-19 Screening Contact w/high risk pt: No Experienced COVID-19 symptoms?: No COVID-19 Testing performed HAIR SPRING WINDER: No (Rosy Salas) Patient History Limited by: other - AMS Past Medical History: see triage record, DM, HTN Past Surgical History: unable to obtain Pertinent Family History: unable to obtain Reviewed Nursing Documentation: PMH: Agreed; PSxH: Agreed (Rosy Salas) Nursing Documentation-PMH Past Medical History: No History, Except For Hx Cardiac Problems: Yes Hx Hypertension: Yes Hx Cancer: No Hx Gastrointestinal Problems: No History Of Psychiatric Problem: Yes - substance abuse Hx Neurological Problems: Yes - Altered Mental Status (Rosy Salas) Review of Systems All Other Systems: limited - PT AMS/poor historian (Rosy Salas) Physical Exam Vital Signs Date Time Temp Pulse Resp B/P (MAP) Pulse Ox O2 Delivery O2 Flow Rate FiO2 11/27/20 14:43 98.4 93 22 155/80 (105) 100 Room Air Sp02 EP Interpretation: reviewed, normal General Appearance: no apparent distress, alert, GCS 15, non-toxic, thin, Chronically Ill Head: normocephalic, atraumatic Eyes: bilateral eye normal inspection, bilateral eye PERRL ENT: hearing grossly normal, normal voice Neck: full range of motion Respiratory: lungs clear, normal breath sounds, no respiratory distress, no wheezing, speaking full sentences Cardiovascular #1: regular rate, rhythm, no edema, normal capillary refill Gastrointestinal: normal bowel sounds, non tender, soft Musculoskeletal: normal range of motion, gait/station normal, non-tender, other - no obvious deformities Neurologic: alert, sensory intact, responsive, speech normal, other - A&O only to person. Psychiatric: mood/affect normal Skin: no rash, normal color - no bruises or abrasions, warm/dry - very dry skin Lymphatic: no adenopathy (Rosy Salas) Medical Decision Making PA Attestation Dr. Alfaro Is my supervising Physician whom patient management has been discussed with. (Rosy Salas) Diagnostic Impression: Primary Impression: Failure to thrive Qualified Codes: R62.7 - Adult failure to thrive Additional Impressions: Encephalopathy Falling episodes ER Course 75 YO male presents to the ED for evaluation of AMS & Fall. Pt. was found down at home next to his bed by his grandson. This was an unwitnessed event. HPI and ROS are limited due to pt. mental status, and grandson being a poor historian regarding pt. medical hx and details about today's event. Pt. himself denies pain. He denies neck pain or tenderness. He denies CP, palpitations, cough, or SOB. He denies CAMPOVERDE He reports he has DM but doesn't take his medication. Both pt. and grandson are do not know wether he is on a blood thinning medication. Ddx considered but are not limited to OD, SI/HI, psychosis, UTI, intoxication, intracranial process, ETOH, Sepsis Vital signs: are WNL, pt. is afebrile H&PE are most consistent with AMS in adult with unknown baseline hx of unwitnessed fall. No obvious signs of trauma. PT. NAD. answering questions but is only A & O to person. ORDERS: -Accu Check: 206 -UA: Pyuria, similar results to UA from September which resulted culture of no growth - CBC: WNL -CMp: Glucose 211 -Troponin: 0.017 -EK NSR ED INTERVENTIONS: - 1000cc NS IV DISPOSITION: at this time pt. will be admitted to Dr. Mcmanus for AMS, encephalopathy and FTT. Dr. Mcmanus agreed to admit the pt. and to continue pt. care management. Labs Test 11/27/20 14:50 11/27/20 14:56 Urine Color Yellow Urine Appearance Slightly cloudy Urine pH 5 (4.5-8.0) Urine Specific [employer] [place] 1.020 (1.005-1.035) Urine Protein 2+ (NEGATIVE) Urine Glucose (UA) Negative (NEGATIVE) Urine Ketones 2+ (NEGATIVE) Urine Blood 5+ (NEGATIVE) Urine Nitrite Negative (NEGATIVE) Urine Bilirubin 2+ (NEGATIVE) Urine Ictotest Negative (NEGATIVE) Urine Urobilinogen 8 MG/DL (0.0-1.0) Urine Leukocyte Esterase 1+ (NEGATIVE) Urine RBC Tntc /HPF (0 - 0) Urine WBC 5-10 /HPF (0 - 0) Urine Squamous Epithelial Cells Occasional /LPF Urine Bacteria Few /HPF (NONE) POC Whole Blood Glucose 206 MG/DL (74-106) White Blood Count 5.0 K/UL (4.8-10.8) Red Blood Count 5.11 M/UL (4.70-6.10) Hemoglobin 14.5 G/DL (14.2-18.0) Hematocrit 46.5 % (42.0-52.0) Mean Corpuscular Volume 91 FL (80-99) Mean Corpuscular Hemoglobin 28.4 PG (27.0-31.0) Mean Corpuscular Hemoglobin Concent 31.3 G/DL (32.0-36.0) Red Cell Distribution Width 13.2 % (11.6-14.8) Platelet Count 209 K/UL (150-450) Mean Platelet Volume 9.9 FL (6.5-10.1) Neutrophils (%) (Auto) 49.2 % (45.0-75.0) Lymphocytes (%) (Auto) 40.6 % (20.0-45.0) Monocytes (%) (Auto) 6.3 % (1.0-10.0) Eosinophils (%) (Auto) 2.6 % (0.0-3.0) Basophils (%) (Auto) 1.2 % (0.0-2.0) Sodium Level 141 MMOL/L (136-145) Potassium Level 3.5 MMOL/L (3.5-5.1) Chloride Level 101 MMOL/L (98-107) Carbon Dioxide Level 28 MMOL/L (21-32) Anion Gap 12 mmol/L (5-15) Blood Urea Nitrogen 20 mg/dL (7-18) Creatinine 1.2 MG/DL (0.55-1.30) Estimat Glomerular Filtration Rate > 60 mL/min (>60) Glucose Level 211 MG/DL (74-106) Calcium Level 9.6 MG/DL (8.5-10.1) Total Bilirubin 0.6 MG/DL (0.2-1.0) Aspartate Amino Transf (AST/SGOT) 29 U/L (15-37) Alanine Aminotransferase (ALT/SGPT) 57 U/L (12-78) Alkaline Phosphatase 82 U/L (46-116) Troponin I 0.017 ng/mL (0.000-0.056) Total Protein 8.3 G/DL (6.4-8.2) Albumin 3.4 G/DL (3.4-5.0) Globulin 4.9 g/dL Albumin/Globulin Ratio 0.7 (1.0-2.7) (Rosy Salas) ER Course Please see above note. Patient evaluated by me. Agree with assessment and plan. Discussed with Dr. Mcmanus who feels the patient needs to be placed. Admit to medical floor. (Andrés Alfaro MD) EKG Diagnostic Results Troponin ordered: Yes When was troponin ordered?: Nov 27, 2020 EKG Time: 14:49 Rate: normal - 90 Rhythm: NSR ST Segments: no acute changes ASA given to the pt in ED: No PA Scribe Text This Interpretation was scribed by LONDON Salas. (Rosy Salas) Rhythm Strip Diag. Results Rhythm: NSR, no PVC's, no ectopy (Andrés Alfaro MD) Chest X-Ray Diagnostic Results Chest X-Ray Diagnostic Results : Chest X-Ray Ordered: Yes # of Views/Limited/Complete: 1 View Indication: Other - AMS EP Interpretation: Yes PA Xray: Interpretation reviewed, by supervising MD, and agrees with findings. Interpretation: no consolidation, no effusion, no pneumothorax Impression: No acute disease Electronically Signed by: Rosy Salas PA-C (Rosy Salas) Chest X-Ray Diagnostic Results : Electronically Signed by: Pedro Fabian documentation of Xray reviewed by me and is accurate, Andrés Alfaro MD (Andrés Alfaro MD) CT/MRI/US Diagnostic Results CT/MRI/US Diagnostic Results : Imaging Test Ordered: CT Head No contrast Impression " Age-related degenerative changes, no acute fractures or intracranial hemorrhage." --Per official radiology report- Please see report for specific details. (Rosy Salas) Last Vital Signs Date Time Temp Pulse Resp B/P (MAP) Pulse Ox O2 Delivery O2 Flow Rate FiO2 11/27/20 14:58 93 22 Room Air 11/27/20 14:43 98.4 155/80 (105) 100 (Rosy Salas) Last Vital Signs Date Time Temp Pulse Resp B/P (MAP) Pulse Ox O2 Delivery O2 Flow Rate FiO2 11/27/20 21:00 Room Air 11/27/20 20:00 97.3 87 20 151/84 (106) 98 (Andrés Alfaro MD) Disposition: ADMITTED INPATIENT Condition: Serious Scripts Unable to Obtain Active Prescriptions or Reported Meds Referrals: NOT CHOSEN IPA/,REFERRING (PCP) Rosy Salas Nov 27, 2020 16:20 Andrés Alfaro MD Nov 27, 2020 16:51
[2020-11-27 16:21] LABS: APPEARANCE,URINE SLIGHTLY CLOUDY; BILIRUBIN, URINE 2+ (NEGATIVE); GLUCOSE, URINE (UA) NEGATIVE (NEGATIVE); KETONES,URINE 2+ (NEGATIVE); LEUKOCYTE ESTERASE ,URINE 1+ (NEGATIVE); NITRITE,URINE NEGATIVE (NEGATIVE); PH,URINE 5 (4.5-8.0); PROTEIN,URINE 2+ (NEGATIVE); UROBILINOGEN,URINE 8 MG/DL (0.0-1.0)
[2020-11-27 16:24] LABS: COLOR,URINE YELLOW
[2020-11-27 16:59] VITALS: BP 117/64
--- NOTE | 2020-11-27 16:59 | NUR ---
ED Nurse Note: attempted to give report to MS unit. they have not assigned the nurse yet. will call at 1730 per nursing ingot supervisor.
--- NOTE | 2020-11-27 17:29 | NUR ---
ED Nurse Note: skin is dry but no pressur ulcer noted.
--- NOTE | 2020-11-27 17:35 | NUR ---
ED Nurse Note: pt departed from ED in stable condition.
--- NOTE | 2020-11-27 17:37 | NUR ---
ED Nurse Note: report given to MS unit nurse.
[2020-11-27 17:54] VITALS: BP 146/81
--- NOTE | 2020-11-27 17:54 | NUR ---
NURSE NOTES: I received telephone report from PERSONNEL MANAGER Hector; patient alert x3; on room air, no sing of distress and shortness of breath; no sing of chest pain; sacral discoloration; dry skin on bilateral lower extremities; belongings counted and singed; side rails up x2, breaks engaged, bed at lowest position; call light within reach; will call primary care provider to get admission order;
--- NOTE | 2020-11-27 18:16 | NUR ---
NURSE NOTES: I communicated MD Mcmanus to get admission order; waiting for the order;
[2020-11-27] MEDS ORDERED: Morphine Sulfate 2mg/ml Inj(IV/IM USE ONLY) IVP PRN (19:09)
--- NOTE | 2020-11-27 19:20 | NUR ---
NURSE NOTES: Received report from BEVERLY Palacios. Pt is in bed, A&O 2-3, pt is stating he wants to get out of here and does not want to stay over night. Side rails up x3, bed alarm armed, call light within reach, bed locked and in lowest position. Will continue to monitor.
--- NOTE | 2020-11-27 19:29 | History and Physical Report ---
DATE OF ADMISSION: 11/27/2020 HISTORY OF PRESENT ILLNESS: This is a 75-year-old male who came to the emergency room for generalized weakness, failure to thrive, dehydration. The patient is unable to talk. The patient cannot give much history. The patient has been hospitalized about a month ago for COVID pneumonia and generalized weakness. The patient senior care, patient's family, son refused. Now, he has come back with the son from the home where he failure to thrive, dehydration, and possible aspiration pneumonia. The patient currently cannot give any history. PAST MEDICAL HISTORY: Significant for hypertension, dementia, depression, generalized weakness, history of COVID-19. MEDICATIONS: See the list. ALLERGIES: NKA. FAMILY HISTORY: Not contributory. SOCIAL HISTORY: Lives at home. REVIEW OF SYSTEMS: Could not be obtained. PHYSICAL EXAMINATION: GENERAL: This is an elderly male who is currently awake, opening his eyes, generalized weakness. VITAL SIGNS: His blood pressure is 123/60, pulse 70 to 100, respirations 18 to 24, temperature, no fever. SKIN: Slightly dry. No jaundice. HEENT: Eyes are open. CHEST: Bilateral decreased breath sounds. A few crackles. CARDIOVASCULAR: Regular rhythm. Tachycardia. ABDOMEN: Soft. Positive bowel sounds, nontender. EXTREMITIES: No edema. Generalized weakness. LABORATORY DATA: Labs are pending. X-rays pending. ASSESSMENT: 1. Failure to thrive. 2. COVID pneumonia. 3. Rule out sepsis. 4. Dementia. 5. Dehydration. PLAN: We will admit him on the medical floor, start IV fluid, IV antibiotic, bronchodilator treatments. Waiting for COVID. Meanwhile, we will keep him in isolation. Continue supportive treatment. Murali Mcmanus M.D. DR: CHAPITO JOB#: [id number] CC:
--- NOTE | 2020-11-27 19:38 | NUR ---
NURSE HAND-OFF: Important Events on Shift:Patient admitted to the floor; admission order received and carried out as order given Patient Status: Diet: Pending Orders: Pending Results/Labs: Pending MD notification: Latest Vital Signs: Temperature 97.9 , Pulse 81 , B/P 146 /81 , Respiratory Rate 16 , O2 SAT 98 , Room Air, O2 Flow Rate . Vital Sign Comment: Latest [place] Fall Score: 85 Fall Risk: High Risk Safety Measures: Call light Within Reach, Bed Alarm Zone 2, Side Rails Side Rails x2, Bed position Low and Locked. Fall Precautions: Yellow Socks Yellow Gown Door Sign Patient Fall Education Report given to .
[2020-11-27 20:00] VITALS: BP 151/84
[2020-11-27] MEDS: Azithromycin 500 MG in D5W 275 ML IV SCH (22:01)
[2020-11-27] MEDS: cefTRIAXone 1 GM in D5W 55 ML IVPB SCH (22:02)
[2020-11-28] VITALS: BP 156/92
[2020-11-28 04:00] VITALS: BP 147/81
--- NOTE | 2020-11-28 07:05 | NUR ---
NURSE HAND-OFF: Important Events on Shift: Condom catheter placed Patient Status: anxious Diet: NPO Pending Orders: Pending Results/Labs: Pending MD notification: Latest Vital Signs: Temperature 97.9 , Pulse 87 , B/P 147 /81 , Respiratory Rate 20 , O2 SAT 96 , Room Air, O2 Flow Rate . Vital Sign Comment: VSS, blood pressure elevated Latest [place] Fall Score: 85 Fall Risk: High Risk Safety Measures: Call light Within Reach, Bed Alarm Zone 1, Side Rails Side Rails x3, Bed position Low and Locked. Fall Precautions: Yellow Socks Door Sign Patient Fall Education Report given to BEVERLY Palacios.
[2020-11-28 07:13] LABS: BASOPHILS % (AUTO) 1.6 % (0.0-2.0); HEMATOCRIT 40.3 % (42.0-52.0); HEMOGLOBIN 13.1 G/DL (14.2-18.0); LYMPHOCYTES % (AUTO) 36.1 % (20.0-45.0); MEAN CORPUSCULAR VOLUME 90 FL (80-99); MONOCYTES % (AUTO) 8.5 % (1.0-10.0); NEUTROPHILS % (AUTO) 49.8 % (45.0-75.0); PLATELET COUNT 175 K/UL (150-450); RED BLOOD COUNT 4.49 M/UL (4.70-6.10); RED CELL DISTRIBUTION WIDTH 12.9 % (11.6-14.8); WHITE BLOOD COUNT 4.5 K/UL (4.8-10.8)
[2020-11-28 07:14] LABS: ALANINE AMINOTRANSFERASE 45 U/L (12-78); ALBUMIN 2.8 G/DL (3.4-5.0); ALBUMIN/GLOBULIN RATIO 0.7 (1.0-2.7); ALKALINE PHOSPHATASE 66 U/L (46-116); ANION GAP 9 mmol/L (5-15); ASPARTATE AMINO TRANSFERASE 26 U/L (15-37); BILIRUBIN,TOTAL 0.5 MG/DL (0.2-1.0); BLOOD UREA NITROGEN 14 mg/dL (7-18); CALCIUM 8.9 MG/DL (8.5-10.1); CARBON DIOXIDE 27 MMOL/L (21-32); CHLORIDE 106 MMOL/L (98-107); CREATININE 0.8 MG/DL (0.55-1.30); SODIUM 142 MMOL/L (136-145)
--- NOTE | 2020-11-28 07:34 | NUR ---
NURSE NOTES: Awake, confused, patient asking to go back home, patient told to wait for the Dr. to come and see; patient ask for water, ice chips given; on room air, no sing of distress and shortness of breath; no sing of chest pain; IV LAC fluid is running; Condom cath in place; side rails up x2, breaks engaged, bed at lowest position, bed alarm on; call light within reach; will keep monitoring.
[2020-11-28 08:00] VITALS: BP 142/82
[2020-11-28] MEDS: dexAMETHasone 10mg/ml Inj IV SCH (09:35)
--- NOTE | 2020-11-28 10:08 | NUR ---
NURSE NOTES: Patient's BP 142/82 P 82; patient's K 3; I communicated regarding this matter to MD Mcmanus; waiting for the order;
--- NOTE | 2020-11-28 11:40 | NUR ---
CASE MANAGEMENT:REVIEW PRESENTED TO ER BY FAMILY CC: WEAKNESS. FALL FROM BED SI: ENCEPHALOPATHY. FALLING EPISODES 98.5 93 22 155/80 100% ON RA BUN+20 GLUCOSE+211 IS: 1L NS BOLUS CT HEAD CHEST XRAY : TO MED/SURG DCP: FROM HOME PLAN: NEURO CHECKS Q4HRS
[2020-11-28 12:00] VITALS: BP 151/75
--- NOTE | 2020-11-28 14:53 | General Progress Note ---
Subjective ROS Limited/Unobtainable: No Allergies: Coded Allergies: No Known Allergies (Unverified , 11/05/14) Objective Last 24 Hour Vital Signs Date Time Temp Pulse Resp B/P (MAP) Pulse Ox O2 Delivery O2 Flow Rate FiO2 11/28/20 12:00 98.0 72 19 151/75 (100) 96 11/28/20 09:00 Room Air 11/28/20 08:00 97.1 82 20 142/82 (102) 97 11/28/20 04:00 97.9 87 20 147/81 (103) 96 11/28/20 00:00 97.7 82 20 156/92 (113) 97 11/27/20 21:00 Room Air 11/27/20 20:00 97.3 87 20 151/84 (106) 98 11/27/20 18:19 Room Air 11/27/20 17:54 97.9 81 16 146/81 (102) 98 11/27/20 17:35 98.4 78 19 118/71 100 Room Air 11/27/20 16:59 76 17 117/64 100 Room Air 11/27/20 16:09 98.4 73 16 122/71 100 Room Air 11/27/20 14:58 93 22 Room Air Intake and Output 11/27/20 11/28/20 19:00 07:00 Intake Total 2000 ml 100 ml Output Total 150 ml Balance 2000 ml -50 ml Intake Oral 0 ml IV Total 2000 ml 100 ml Output Urine Total 150 ml # Voids 1 # Bowel Movements 1 Laboratory Tests 11/27/20 14:56: White Blood Count 5.0, Red Blood Count 5.11, Hemoglobin 14.5, Hematocrit 46.5, Mean Corpuscular Volume 91, Mean Corpuscular Hemoglobin 28.4, Mean Corpuscular Hemoglobin Concent 31.3L, Red Cell Distribution Width 13.2, Platelet Count 209, Mean Platelet Volume 9.9, Neutrophils (%) (Auto) 49.2, Lymphocytes (%) (Auto) 40.6, Monocytes (%) (Auto) 6.3, Eosinophils (%) (Auto) 2.6, Basophils (%) (Auto) 1.2, Sodium Level 141, Potassium Level 3.5, Chloride Level 101, Carbon Dioxide Level 28, Anion Gap 12, Blood Urea Nitrogen 20H, Creatinine 1.2, Estimat Glomerular Filtration Rate > 60, Glucose Level 211H, Calcium Level 9.6, Total Bilirubin 0.6, Aspartate Amino Transf (AST/SGOT) 29, Alanine Aminotransferase (ALT/SGPT) 57, Alkaline Phosphatase 82, Troponin I 0.017, Total Protein 8.3H, Albumin 3.4, Globulin 4.9, Albumin/Globulin Ratio 0.7L 11/28/20 05:30: White Blood Count 4.5L, Red Blood Count 4.49L, Hemoglobin 13.1L, Hematocrit 40.3L, Mean Corpuscular Volume 90, Mean Corpuscular Hemoglobin 29.1, Mean Corpuscular Hemoglobin Concent 32.4, Red Cell Distribution Width 12.9, Platelet Count 175, Mean Platelet Volume 10.7H, Neutrophils (%) (Auto) 49.8, Lymphocytes (%) (Auto) 36.1, Monocytes (%) (Auto) 8.5, Eosinophils (%) (Auto) 4.0H, Basophils (%) (Auto) 1.6, Sodium Level 142, Potassium Level 3.0L, Chloride Level 106, Carbon Dioxide Level 27, Anion Gap 9, Blood Urea Nitrogen 14, Creatinine 0.8, Estimat Glomerular Filtration Rate > 60, Glucose Level 107#H, Calcium Level 8.9, Total Bilirubin 0.5, Aspartate Amino Transf (AST/SGOT) 26, Alanine Aminotransferase (ALT/SGPT) 45, Alkaline Phosphatase 66, Total Protein 6.9, Albumin 2.8L, Globulin 4.1, Albumin/Globulin Ratio 0.7L Height (Feet): 5 Height (Inches): 4.00 Weight (Pounds): 120 General Appearance: no apparent distress EENT: normal ENT inspection Neck: supple Cardiovascular: normal rate Respiratory/Chest: decreased breath sounds Abdomen: normal bowel sounds, non tender, soft Extremities: non-tender Assessment/Plan Assessment/Plan: ASSESSMENT: 1. Failure to thrive. 2. COVID pneumonia. 3. Rule out sepsis. 4. Dementia. 5. Dehydration. swallow eval COVID check may need PEG will Tucker Jackson MD Nov 28, 2020 14:53
[2020-11-28] MEDS ORDERED: Varibar Nectar 240ml MC PRN (15:00)
[2020-11-28] MEDS ORDERED: Varibar Thin Liquid powder 148gm MC PRN (15:00)
[2020-11-28] MEDS ORDERED: Varibar Pudding 230ml MC PRN (15:00)
[2020-11-28] MEDS ORDERED: Varibar Honey 250ml MC PRN (15:00)
[2020-11-28 16:00] VITALS: BP 160/93
--- NOTE | 2020-11-28 16:15 | NUR ---
NURSE NOTES: Patient BP 160/93 P 79; I communicated MD Mcmanus if MD moffett given Blood pressure medication; waiting for order;
--- NOTE | 2020-11-28 16:50 | General Progress Note ---
Subjective Date patient seen: Nov 28, 2020 Constitutional: Reports: weakness HEENT: Reports: no symptoms Cardiovascular: Reports: no symptoms Respiratory: Reports: no symptoms Gastrointestinal/Abdominal: Reports: poor fluid intake Allergies: Coded Allergies: No Known Allergies (Unverified , 11/05/14) Subjective non verabal bed bound Objective Last 24 Hour Vital Signs Date Time Temp Pulse Resp B/P (MAP) Pulse Ox O2 Delivery O2 Flow Rate FiO2 11/28/20 16:00 97.5 79 20 160/93 (115) 98 11/28/20 12:00 98.0 72 19 151/75 (100) 96 11/28/20 09:00 Room Air 11/28/20 08:00 97.1 82 20 142/82 (102) 97 11/28/20 04:00 97.9 87 20 147/81 (103) 96 11/28/20 00:00 97.7 82 20 156/92 (113) 97 11/27/20 21:00 Room Air 11/27/20 20:00 97.3 87 20 151/84 (106) 98 11/27/20 18:19 Room Air 11/27/20 17:54 97.9 81 16 146/81 (102) 98 11/27/20 17:35 98.4 78 19 118/71 100 Room Air 11/27/20 16:59 76 17 117/64 100 Room Air Intake and Output 11/27/20 11/28/20 19:00 07:00 Intake Total 2000 ml 100 ml Output Total 150 ml Balance 2000 ml -50 ml Intake Oral 0 ml IV Total 2000 ml 100 ml Output Urine Total 150 ml # Voids 1 # Bowel Movements 1 Laboratory Tests 11/28/20 05:30: White Blood Count 4.5L, Red Blood Count 4.49L, Hemoglobin 13.1L, Hematocrit 40.3L, Mean Corpuscular Volume 90, Mean Corpuscular Hemoglobin 29.1, Mean Corpuscular Hemoglobin Concent 32.4, Red Cell Distribution Width 12.9, Platelet Count 175, Mean Platelet Volume 10.7H, Neutrophils (%) (Auto) 49.8, Lymphocytes (%) (Auto) 36.1, Monocytes (%) (Auto) 8.5, Eosinophils (%) (Auto) 4.0H, Basophils (%) (Auto) 1.6, Sodium Level 142, Potassium Level 3.0L, Chloride Level 106, Carbon Dioxide Level 27, Anion Gap 9, Blood Urea Nitrogen 14, Creatinine 0.8, Estimat Glomerular Filtration Rate > 60, Glucose Level 107#H, Calcium Level 8.9, Total Bilirubin 0.5, Aspartate Amino Transf (AST/SGOT) 26, Alanine Aminotransferase (ALT/SGPT) 45, Alkaline Phosphatase 66, Total Protein 6.9, Albumin 2.8L, Globulin 4.1, Albumin/Globulin Ratio 0.7L Height (Feet): 5 Height (Inches): 4.00 Weight (Pounds): 120 General Appearance: no apparent distress EENT: PERRL/EOMI Neck: supple Cardiovascular: regular rhythm Respiratory/Chest: crackles/rales Abdomen: non tender, soft Extremities: non-tender Assessment/Plan Assessment/Plan: aloc failure of thrive uti hx covid dementia hypokalemia ivf iv abx pt/ot Gonzales Esposito cm, MD Nov 28, 2020 16:50
--- NOTE | 2020-11-28 17:22 | NUR ---
NURSE NOTES: COVID-19 swapped done and sent to lab; waiting for result:
--- NOTE | 2020-11-28 19:20 | NUR ---
NURSE NOTES: Received report from BEVERLY Palacios. Pt is in bed and calm. Call light within reach, bed alarm armed, side rails up x3, bed locked and in lowest position. IVF infusing well. Will follow up with patient's blood pressure.
--- NOTE | 2020-11-28 19:28 | NUR ---
NURSE HAND-OFF: Important Events on Shift:COVID-19 swap done; hydration and antibiotics; BP 160/93 P 79 No order received from MD Mcmanus; therese Bowen RN to follow up with Patient Status: Diet: Pending Orders: Pending Results/Labs: Pending MD notification: Latest Vital Signs: Temperature 97.5 , Pulse 79 , B/P 160 /93 , Respiratory Rate 20 , O2 SAT 98 , Room Air, O2 Flow Rate . Vital Sign Comment: Latest Adair Fall Score: 85 Fall Risk: High Risk Safety Measures: Call light Within Reach, Bed Alarm Zone 1, Side Rails Side Rails x3, Bed position Low and Locked. Fall Precautions: Yellow Socks Door Sign Patient Fall Education Report given to .
[2020-11-28 20:00] VITALS: BP 167/98
[2020-11-28] MEDS: cefTRIAXone 1 GM in D5W 55 ML IVPB SCH (20:23)
[2020-11-28] MEDS: Azithromycin 500 MG in D5W 275 ML IV SCH (20:24)
--- NOTE | 2020-11-28 22:12 | NUR ---
Contacted about patient's blood pressure of 167/98. Awaiting for orders.
--- NOTE | 2020-11-28 22:23 | NUR ---
NURSE NOTES: Received order for Norvasc 10mg QD. Order entered and implemented. Will continue to monitor. Addendum: 11/29/20 at 0412 by Andrés Espinosa RN Add: Doctor said there is no need for PRN BP medication when asked for some by nurse.
[2020-11-29] VITALS: BP 118/66
[2020-11-29 04:00] VITALS: BP 160/67
[2020-11-29 06:38] LABS: BASOPHILS % (AUTO) 1.4 % (0.0-2.0); HEMATOCRIT 38.1 % (42.0-52.0); HEMOGLOBIN 12.4 G/DL (14.2-18.0); LYMPHOCYTES % (AUTO) 36.5 % (20.0-45.0); MEAN CORPUSCULAR VOLUME 89 FL (80-99); MONOCYTES % (AUTO) 8.1 % (1.0-10.0); NEUTROPHILS % (AUTO) 52.9 % (45.0-75.0); PLATELET COUNT 158 K/UL (150-450); RED BLOOD COUNT 4.26 M/UL (4.70-6.10)
[2020-11-29 06:59] LABS: ALANINE AMINOTRANSFERASE 40 U/L (12-78); ALBUMIN 2.9 G/DL (3.4-5.0); ALBUMIN/GLOBULIN RATIO 0.7 (1.0-2.7); ALKALINE PHOSPHATASE 64 U/L (46-116); ANION GAP 7 mmol/L (5-15); ASPARTATE AMINO TRANSFERASE 25 U/L (15-37); BILIRUBIN,TOTAL 0.5 MG/DL (0.2-1.0); BLOOD UREA NITROGEN 11 mg/dL (7-18); CALCIUM 8.7 MG/DL (8.5-10.1); CARBON DIOXIDE 28 MMOL/L (21-32); CHLORIDE 105 MMOL/L (98-107); CREATININE 0.7 MG/DL (0.55-1.30); POTASSIUM 3.6 MMOL/L (3.5-5.1); SODIUM 140 MMOL/L (136-145)
--- NOTE | 2020-11-29 07:05 | NUR ---
NURSE HAND-OFF: Important Events on Shift: Received order for BP medication Patient Status: sleeping Diet: NPO Pending Orders: Pending Results/Labs: Pending MD notification: Latest Vital Signs: Temperature 97.2 , Pulse 86 , B/P 160 /67 , Respiratory Rate 18 , O2 SAT 98 , Room Air, O2 Flow Rate . Vital Sign Comment: VSS, high BP Latest Adair Fall Score: 85 Fall Risk: High Risk Safety Measures: Call light Within Reach, Bed Alarm Zone 1, Side Rails Side Rails x3, Bed position Low and Locked. Fall Precautions: Yellow Socks Door Sign Patient Fall Education Report given to BEVERLY Danielle.
--- NOTE | 2020-11-29 07:08 | NUR ---
NURSE NOTES: pt is in bed, alert and verbally responsive. oriented x 4, denies any pain and discomfort. IV fluids running, no infiltration noted. no altered level of consciousness noted at his time. no acute distress noted. placed call light within reach.
[2020-11-29 08:00] VITALS: BP 149/79
[2020-11-29] MEDS: dexAMETHasone 10mg/ml Inj IV SCH (09:26)
--- NOTE | 2020-11-29 11:10 | NUR ---
CASE MANAGEMENT:REVIEW 11/29/20 SI: ENCEPHALOPATHY. UTI H/O DEMENTIA AND COVID 97.7 71 18 149/79 98% ON RA H/H-12.4/38.1 IS:IV FLAGYL Q8HRS IV AZITHROMYCIN Q24 IV ROCEPHIN Q24 IV DECADRON Q24 IVF@100/HR : MED/SURG STATUS DCP: FROM HOME WITH FAMILY PLAN: PT DOE NOVEL COVID IN PROCESS CONTINUE IV ANTIBIOTICS AND IV HYDRATION
--- NOTE | 2020-11-29 11:38 | General Progress Note ---
Subjective Allergies: Coded Allergies: No Known Allergies (Unverified , 11/05/14) Subjective non verabal bed bound doing ok pureed diet Objective Last 24 Hour Vital Signs Date Time Temp Pulse Resp B/P (MAP) Pulse Ox O2 Delivery O2 Flow Rate FiO2 11/29/20 09:34 71 149/79 11/29/20 09:00 Room Air 11/29/20 08:00 97.7 71 18 149/79 (102) 98 11/29/20 04:00 97.2 86 18 160/67 (98) 98 11/29/20 00:00 97.2 68 16 118/66 (83) 98 11/28/20 22:28 89 167/98 11/28/20 21:00 Room Air 11/28/20 20:00 97.8 89 16 167/98 (121) 98 11/28/20 16:00 97.5 79 20 160/93 (115) 98 11/28/20 12:00 98.0 72 19 151/75 (100) 96 Intake and Output 11/28/20 11/29/20 19:00 07:00 Intake Total 1100 ml 100 ml Output Total 600 ml Balance 1100 ml -500 ml Intake Oral 0 ml IV Total 1100 ml 100 ml Output Urine Total 600 ml Laboratory Tests 11/29/20 05:35: White Blood Count 4.0L, Red Blood Count 4.26L, Hemoglobin 12.4L, Hematocrit 38.1L, Mean Corpuscular Volume 89, Mean Corpuscular Hemoglobin 29.2, Mean Deysi uscular Hemoglobin Concent 32.6, Red Cell Distribution Width 13.0, Platelet Count 158, Mean Platelet Volume 9.5, Neutrophils (%) (Auto) 52.9, Lymphocytes (%) (Auto) 36.5, Monocytes (%) (Auto) 8.1, Eosinophils (%) (Auto) 1.0, Basophils (%) (Auto) 1.4, Sodium Level 140, Potassium Level 3.6, Chloride Level 105, Carbon Dioxide Level 28, Anion Gap 7, Blood Urea Nitrogen 11, Creatinine 0.7, Estimat Glomerular Filtration Rate > 60, Glucose Level 113H, Calcium Level 8.7, Total Bilirubin 0.5, Aspartate Amino Transf (AST/SGOT) 25, Alanine Aminotransferase (ALT/SGPT) 40, Alkaline Phosphatase 64, Total Protein 7.1, Albumin 2.9L, Globulin 4.2, Albumin/Globulin Ratio 0.7L Height (Feet): 5 Height (Inches): 4.00 Weight (Pounds): 120 General Appearance: no apparent distress Neck: supple Cardiovascular: regular rhythm Respiratory/Chest: normal breath sounds Abdomen: non tender, soft Extremities: non-tender Assessment/Plan Assessment/Plan: aloc better failure of thrive uti hx covid dementia hypokalemia resolved pureed diet ivf iv abx pt/ot dw cm dc to Gonzales Bui MD Nov 29, 2020 11:38
[2020-11-29 12:00] VITALS: BP 160/80
--- NOTE | 2020-11-29 12:02 | NUR ---
Speech Pathology Note (Bedside Dysphagia Evaluation) Brief Note: Mr. Joe is a 75 year old male who was BIBA from home for fall on 11/27/2020. CT head was remarkable and CXR is stable from last CXR from September 2020 during previous hospitalization for COVID 19. I have done bedside swallow evaluation on 10/17/2020, findings were functional swallow and pureed diet was started and discharged to home. Labs/vital signs: Unremarkable Findings of Swallow evaluation: Mr. Joe is alert and oriented to self, hospital. His speech is slow but clear. Voice is intact. He stated that he was not hungry for a while but not sure why. Oral exam revealed dry mucosa. Given him apple sauce and water, he tolerated without s.s of aspiration. This findings were similar to what I have remember from the last bedside swallow evaluation. Interpretation: 1. Functional swallow 2. May be poor intake Plan: 1. Pureed and thin liquid diet 2. Encourage JOANNE Orellana
--- NOTE | 2020-11-29 12:17 | NUR ---
P.T Note: P.T evaluation completed and tx initiated. Please refer to P.T evaluation for current functional status.
--- NOTE | 2020-11-29 12:48 | General Progress Note ---
Subjective ROS Limited/Unobtainable: No Allergies: Coded Allergies: No Known Allergies (Unverified , 11/05/14) Objective Last 24 Hour Vital Signs Date Time Temp Pulse Resp B/P (MAP) Pulse Ox O2 Delivery O2 Flow Rate FiO2 11/29/20 09:34 71 149/79 11/29/20 09:00 Room Air 11/29/20 08:00 97.7 71 18 149/79 (102) 98 11/29/20 04:00 97.2 86 18 160/67 (98) 98 11/29/20 00:00 97.2 68 16 118/66 (83) 98 11/28/20 22:28 89 167/98 11/28/20 21:00 Room Air 11/28/20 20:00 97.8 89 16 167/98 (121) 98 11/28/20 16:00 97.5 79 20 160/93 (115) 98 Intake and Output 11/28/20 11/29/20 19:00 07:00 Intake Total 1100 ml 100 ml Output Total 600 ml Balance 1100 ml -500 ml Intake Oral 0 ml IV Total 1100 ml 100 ml Output Urine Total 600 ml Laboratory Tests 11/29/20 05:35: White Blood Count 4.0L, Red Blood Count 4.26L, Hemoglobin 12.4L, Hematocrit 38.1L, Mean Corpuscular Volume 89, Mean Corpuscular Hemoglobin 29.2, Mean Corpuscular Hemoglobin Concent 32.6, Red Cell Distribution Width 13.0, Platelet Count 158, Mean Platelet Volume 9.5, Neutrophils (%) (Auto) 52.9, Lymphocytes (%) (Auto) 36.5, Monocytes (%) (Auto) 8.1, Eosinophils (%) (Auto) 1.0, Basophils (%) (Auto) 1.4, Sodium Level 140, Potassium Level 3.6, Chloride Level 105, Carbon Dioxide Level 28, Anion Gap 7, Blood Urea Nitrogen 11, Creatinine 0.7, Estimat Glomerular Filtration Rate > 60, Glucose Level 113H, Calcium Level 8.7, Total Bilirubin 0.5, Aspartate Amino Transf (AST/SGOT) 25, Alanine Aminotransferase (ALT/SGPT) 40, Alkaline Phosphatase 64, Total Protein 7.1, Albumin 2.9L, Globulin 4.2, Albumin/Globulin Ratio 0.7L Height (Feet): 5 Height (Inches): 4.00 Weight (Pounds): 120 General Appearance: no apparent distress EENT: normal ENT inspection Neck: supple Cardiovascular: normal rate Respiratory/Chest: decreased breath sounds Abdomen: hypoactive bowel sounds Extremities: non-tender Assessment/Plan Assessment/Plan: ASSESSMENT: 1. Failure to thrive. 2. COVID pneumonia. 3. Rule out sepsis. 4. Dementia. 5. Dehydration. swallow eval>>>passed COVID check add marinol claorie count may need PEG will Tucker Jackson MD Nov 29, 2020 12:48
--- NOTE | 2020-11-29 13:15 | NUR ---
NURSE NOTES: Notified Dr. Mcmanus about pt's negative covid-19 result. MD ordered to take pt off isolation. order noted and communicated.
[2020-11-29 16:00] VITALS: BP 130/80
[2020-11-29] MEDS: Dronabinol 2.5mg Cap ORAL SCH (17:54)
--- NOTE | 2020-11-29 18:34 | NUR ---
NURSE HAND-OFF: Important Events on Shift: n/a Patient Status: stable Diet: puree Pending Orders: n/a Pending Results/Labs:n/a Pending MD notification:n/a Latest Vital Signs: Temperature 97.8 , Pulse 91 , B/P 130 /80 , Respiratory Rate 18 , O2 SAT 97 , Room Air, O2 Flow Rate . Vital Sign Comment: stable Latest Adair Fall Score: 85 Fall Risk: High Risk Safety Measures: Call light Within Reach, Bed Alarm Zone 1, Side Rails Side Rails x3, Bed position Low and Locked. Fall Precautions: Yellow Socks Door Sign Patient Fall Education Report given to . Addendum: 11/29/20 at 1919 by Shashi Erazo RN NURSE HAND-OFF: Important Events on Shift:[] Patient Status: [] Diet: [] Pending Orders: [] Pending Results/Labs:[] Pending MD notification:[] Latest Vital Signs: Temperature 97.8 , Pulse 91 , B/P 130 /80 , Respiratory Rate 18 , O2 SAT 97 , Room Air, O2 Flow Rate . Vital Sign Comment: [] Latest Adair Fall Score: 85 Fall Risk: High Risk Safety Measures: Call light Within Reach, Bed Alarm Zone 1, Side Rails Side Rails x3, Bed position Low and Locked. Fall Precautions: Yellow Socks Door Sign Patient Fall Education Report given to CHRISTOPHE.
--- NOTE | 2020-11-29 19:45 | NUR ---
NURSE NOTES: Received report from Shashi PAUL. Patient is awake, alert and oriented x3. On room air, breathing is even and unlabored. No complains of pain or distress noted. IV left AC intact and patent with no bleeding. Bed low and locked. Call light within reach.
[2020-11-29 20:00] VITALS: BP 128/78
[2020-11-29] MEDS: Azithromycin 500 MG in D5W 275 ML IV SCH (20:05)
[2020-11-29] MEDS: cefTRIAXone 1 GM in D5W 55 ML IVPB SCH (21:33)
[2020-11-30] VITALS: BP 141/78
[2020-11-30 04:00] VITALS: BP 140/78
--- NOTE | 2020-11-30 06:55 | NUR ---
RD ASSESSMENT & RECOMMENDATIONS SEE CARE ACTIVITY FOR COMPLETE ASSESSMENT DAILY ESTIMATED NEEDS: Needs based on cardiac, 67kg 25-30 kcals/kg total kcals 1-1.5 g protein/kg 67-100 g total protein 25-30 mL/kg total fluid mLs NUTRITION DIAGNOSIS: Swallowing difficulty R/T dysphagia as evidenced by seen by [employer] w/ rec for pureed moist texture diet w/ thin liquids. CURRENT DIET:REGULAR/ pureed moist w/ thin liquids PO DIET RECOMMENDATIONS: Maintain liberalized regular/ texture per [employer] + Ensure Enlive TID w/ meals ADDITIONAL RECOMMENDATIONS: 1) Ensure TID w/ meals added (Change to Glucerna w/ elev BGs) 2) Monitor BGs w/ Decadron, need for carb controlled diet and/or NISS 3) Calibrated bedscale wt 4) F/up w/ Wilner count x 48 hrs 5) MVI x 1 .
--- NOTE | 2020-11-30 07:34 | NUR ---
NURSE HAND-OFF: Important Events on Shift: IV antibiotics therapy Patient Status: Stable Diet: Regular (pureed thin liquid) Pending Orders: [] Pending Results/Labs:[] Pending MD notification:[] Latest Vital Signs: Temperature 97.6 , Pulse 65 , B/P 140 /78 , Respiratory Rate 20 , O2 SAT 99 , Room Air, O2 Flow Rate . Vital Sign Comment: VS stable Latest Adair Fall Score: 85 Fall Risk: High Risk Safety Measures: Call light Within Reach, Bed Alarm Zone 1, Side Rails Side Rails x3, Bed position Low and Locked. Fall Precautions: Yellow Socks Door Sign Patient Fall Education Report will be given to Aurora RN.
[2020-11-30 08:00] VITALS: BP 159/84
--- NOTE | 2020-11-30 08:48 | General Progress Note ---
Subjective ROS Limited/Unobtainable: No Allergies: Coded Allergies: No Known Allergies (Unverified , 11/05/14) Objective Last 24 Hour Vital Signs Date Time Temp Pulse Resp B/P (MAP) Pulse Ox O2 Delivery O2 Flow Rate FiO2 11/30/20 04:00 97.6 65 20 140/78 (98) 99 11/30/20 00:00 98.5 92 18 141/78 (99) 98 11/29/20 21:00 Room Air 11/29/20 20:00 98.1 94 18 128/78 (95) 94 11/29/20 16:00 97.8 91 18 130/80 (97) 97 11/29/20 12:00 97.8 81 18 160/80 (106) 97 11/29/20 09:34 71 149/79 11/29/20 09:00 Room Air Intake and Output 11/29/20 11/30/20 19:00 07:00 Intake Total 650 ml Output Total 450 ml Balance -450 ml 650 ml Intake Oral 220 ml IV Total 430 ml Output Urine Total 450 ml # Voids 4 Height (Feet): 5 Height (Inches): 4.00 Weight (Pounds): 120 General Appearance: no apparent distress EENT: normal ENT inspection Neck: supple Cardiovascular: normal rate Respiratory/Chest: decreased breath sounds Abdomen: normal bowel sounds, non tender, soft Extremities: non-tender Assessment/Plan Assessment/Plan: ASSESSMENT: 1. Failure to thrive. 2. COVID pneumonia. 3. Rule out sepsis. 4. Dementia. 5. Dehydration. swallow eval>>>passed COVID check add marinol claorie count may need PEG will Tucker Jackson MD Nov 30, 2020 08:48
[2020-11-30] MEDS: dexAMETHasone 10mg/ml Inj IV SCH (09:32)
[2020-11-30] MEDS: Dronabinol 2.5mg Cap ORAL SCH ×2 (09:32→17:36)
[2020-11-30 12:00] VITALS: BP 148/88
--- NOTE | 2020-11-30 15:38 | NUR ---
CASE MANAGEMENT:REVIEW 11/30/20 SI: ENCEPHALOPATHY. UTI VS: T 97.2 HR 70 RR 18 B//P 148/88 SATS 98% ON RA LABS: NO LABS TODAY IS:DRONABINOL PO BID DECADRON IV QD NORVASC PO QD AZITHROMYCIN IV Q24H FLAGYL IV Q8H : MED/SURG STATUS DCP: FROM HOME WITH FAMILY PLAN: CONTINUE IV ANTIBIOTICS
[2020-11-30 16:00] VITALS: BP 136/82
--- NOTE | 2020-11-30 18:36 | General Progress Note ---
Subjective Allergies: Coded Allergies: No Known Allergies (Unverified , 11/05/14) Subjective non verabal bed bound doing ok pureed diet Objective Last 24 Hour Vital Signs Date Time Temp Pulse Resp B/P (MAP) Pulse Ox O2 Delivery O2 Flow Rate FiO2 11/30/20 16:00 98.1 72 20 136/82 (100) 99 11/30/20 12:00 97.2 70 18 148/88 (108) 98 11/30/20 09:32 71 159/84 11/30/20 09:00 Room Air 11/30/20 08:00 96.8 71 20 159/84 (109) 98 11/30/20 04:00 97.6 65 20 140/78 (98) 99 11/30/20 00:00 98.5 92 18 141/78 (99) 98 11/29/20 21:00 Room Air 11/29/20 20:00 98.1 94 18 128/78 (95) 94 Intake and Output 11/29/20 11/30/20 19:00 07:00 Intake Total 650 ml Output Total 450 ml Balance -450 ml 650 ml Intake Oral 220 ml IV Total 430 ml Output Urine Total 450 ml # Voids 4 Height (Feet): 5 Height (Inches): 4.00 Weight (Pounds): 120 General Appearance: alert Neck: supple Cardiovascular: regular rhythm Respiratory/Chest: normal breath sounds Abdomen: non tender, soft Assessment/Plan Assessment/Plan: aloc better failure of thrive uti hx covid dementia hypokalemia resolved pureed diet ivf iv abx pt/ot dw cm dc plan to alysiaGonzales Strauss MD Nov 30, 2020 18:36
--- NOTE | 2020-11-30 19:45 | NUR ---
NURSE NOTES: Received report from Aurora RN. Patient is awake, alert and oriented to self, location, and date. On room air, breathing is even and unlabored. No complains of pain or distress noted. IV left AC intact and patent with no bleeding noted. Changed IV dressing per patient request. Bed low and locked. Call light within reach.
[2020-11-30 20:00] VITALS: BP_SYST 108; BP_SYST 119; BP_DIAS 67; BP_DIAS 75
[2020-11-30] MEDS: Azithromycin 500 MG in D5W 275 ML IV SCH (20:05)
[2020-11-30] MEDS: cefTRIAXone 1 GM in D5W 55 ML IVPB SCH (21:10)
[2020-12-01] VITALS (7 sets, daily range): BP systolic 103–122; BP diastolic 58–82
--- NOTE | 2020-12-01 07:32 | General Progress Note ---
Subjective ROS Limited/Unobtainable: No Allergies: Coded Allergies: No Known Allergies (Unverified , 11/05/14) Objective Last 24 Hour Vital Signs Date Time Temp Pulse Resp B/P (MAP) Pulse Ox O2 Delivery O2 Flow Rate FiO2 12/01/20 04:00 97.4 71 16 122/69 (86) 96 12/01/20 00:00 97.2 70 16 118/70 (86) 95 11/30/20 21:00 Room Air 11/30/20 20:00 97.3 85 17 108/67 (81) 96 11/30/20 16:00 98.1 72 20 136/82 (100) 99 11/30/20 12:00 97.2 70 18 148/88 (108) 98 11/30/20 09:32 71 159/84 11/30/20 09:00 Room Air 11/30/20 08:00 96.8 71 20 159/84 (109) 98 Intake and Output 11/30/20 12/01/20 19:00 07:00 Intake Total 790 ml Balance 790 ml IV Total 430 ml Other 360 ml # Voids 2 2 Height (Feet): 5 Height (Inches): 4.00 Weight (Pounds): 120 General Appearance: no apparent distress EENT: PERRL/EOMI Neck: supple Cardiovascular: normal rate Respiratory/Chest: lungs clear Abdomen: normal bowel sounds, non tender, soft Extremities: non-tender Assessment/Plan Assessment/Plan: ASSESSMENT: 1. Failure to thrive. 2. COVID pneumonia. 3. Rule out sepsis. 4. Dementia. 5. Dehydration. swallow eval>>>passed COVID check>>neg add marinol claorie count improved po intake hold peg plans for now will fu Tucker Ulloa MD Dec 01, 2020 07:32
--- NOTE | 2020-12-01 07:49 | NUR ---
NURSE HAND-OFF: Important Events on Shift: IV antibiotic therapy Patient Status: Stable Diet: Regular pureed Pending Orders: [] Pending Results/Labs:[] Pending MD notification:[] Latest Vital Signs: Temperature 97.4 , Pulse 71 , B/P 122 /69 , Respiratory Rate 16 , O2 SAT 96 , Room Air, O2 Flow Rate . Vital Sign Comment: VS stable Latest Adair Fall Score: 85 Fall Risk: High Risk Safety Measures: Call light Within Reach, Bed Alarm Zone 1, Side Rails Side Rails x3, Bed position Low and Locked. Fall Precautions: Yellow Socks Door Sign Patient Fall Education Report given to Karmen PAUL.
--- NOTE | 2020-12-01 08:00 | NUR ---
NURSE NOTES: Patient awake and alert and oriented.Respirations unlabored.Saline lock in the left arm intact. Patient ate breakfast.No complaints at this time.Bed alarm on,call light within reach.
[2020-12-01] MEDS: dexAMETHasone 10mg/ml Inj IV SCH (09:54)
[2020-12-01] MEDS: Dronabinol 2.5mg Cap ORAL SCH ×2 (09:54→18:49)
[2020-12-01 10:25] LABS: BASOPHILS % (AUTO) 1.4 % (0.0-2.0); EOSINOPHILS % (AUTO) 1.2 % (0.0-3.0); HEMATOCRIT 40.5 % (42.0-52.0); HEMOGLOBIN 12.9 G/DL (14.2-18.0); LYMPHOCYTES % (AUTO) 36.8 % (20.0-45.0); MEAN CORPUSCULAR VOLUME 90 FL (80-99); MONOCYTES % (AUTO) 5.1 % (1.0-10.0); NEUTROPHILS % (AUTO) 55.4 % (45.0-75.0); PLATELET COUNT 195 K/UL (150-450); RED BLOOD COUNT 4.47 M/UL (4.70-6.10); RED CELL DISTRIBUTION WIDTH 13.2 % (11.6-14.8); WHITE BLOOD COUNT 3.7 K/UL (4.8-10.8)
[2020-12-01 10:47] LABS: ANION GAP 7 mmol/L (5-15); BLOOD UREA NITROGEN 11 mg/dL (7-18); CARBON DIOXIDE 30 MMOL/L (21-32); CHLORIDE 106 MMOL/L (98-107); CREATININE 0.8 MG/DL (0.55-1.30); POTASSIUM 3.3 MMOL/L (3.5-5.1); SODIUM 142 MMOL/L (136-145)
--- NOTE | 2020-12-01 14:31 | General Progress Note ---
Subjective Allergies: Coded Allergies: No Known Allergies (Unverified , 11/05/14) Subjective non verabal bed bound doing ok pureed diet Objective Last 24 Hour Vital Signs Date Time Temp Pulse Resp B/P (MAP) Pulse Ox O2 Delivery O2 Flow Rate FiO2 12/01/20 09:45 68 103/58 (73) 12/01/20 09:00 Room Air 12/01/20 09:00 68 103/58 12/01/20 08:00 98.0 70 18 116/69 (85) 97 12/01/20 04:00 97.4 71 16 122/69 (86) 96 12/01/20 00:00 97.2 70 16 118/70 (86) 95 11/30/20 21:00 Room Air 11/30/20 20:00 97.3 85 17 108/67 (81) 96 11/30/20 16:00 98.1 72 20 136/82 (100) 99 Intake and Output 11/30/20 12/01/20 19:00 07:00 Intake Total 790 ml Balance 790 ml IV Total 430 ml Other 360 ml # Voids 2 2 Laboratory Tests 12/01/20 10:10: White Blood Count 3.7L, Red Blood Count 4.47L, Hemoglobin 12.9L, Hematocrit 40.5L, Mean Corpuscular Volume 90, Mean Corpuscular Hemoglobin 28.9, Mean Corpuscular Hemoglobin Concent 32.0, Red Cell Distribution Width 13.2, Platelet Count 195, Mean Platelet Volume 9.7, Neutrophils (%) (Auto) 55.4, Lymphocytes (%) (Auto) 36.8, Monocytes (%) (Auto) 5.1, Eosinophils (%) (Auto) 1.2, Basophils (%) (Auto) 1.4, Sodium Level 142, Potassium Level 3.3L, Chloride Level 106, Carbon Dioxide Level 30, Anion Gap 7, Blood Urea Nitrogen 11, Creatinine 0.8, Estimat Glomerular Filtration Rate > 60, Glucose Level 271H, Calcium Level 9.0 Height (Feet): 5 Height (Inches): 4.00 Weight (Pounds): 120 General Appearance: no apparent distress Neck: supple Cardiovascular: regular rhythm Respiratory/Chest: lungs clear Abdomen: non tender, soft Assessment/Plan Assessment/Plan: aloc better failure of thrive uti hx covid dementia hypokalemia resolved pureed diet ivf iv abx pt/ot dw cm dc plan to Gonzales Bui MD Dec 01, 2020 14:31
--- NOTE | 2020-12-01 19:00 | NUR ---
NURSE NOTES: Patient resting,no complaints at this time,call light within reach,bed alarm on.
--- NOTE | 2020-12-01 19:30 | NUR ---
NURSE NOTES: Patient in bed, able to verbalize needs, on room air, no complaint of SOB. IV access on the left antecubital g.20 saline locked. Instructed to use call light for assistance. Call light in reach. Bed in lowest, lock engaged and alarm on. Will continue to monitor.
--- NOTE | 2020-12-01 19:35 | NUR ---
Kevin GARCIAURSE HAND-OFF: Important Events on Shift:[] Patient Status: []stable. Diet: [Low Fat] Pending Orders: [labs in M 12/02/20] Pending Results/Labs:[] Pending MD notification:[] Latest Vital Signs: Temperature 97.9 , Pulse 83 , B/P 108 /67 , Respiratory Rate 18 , O2 SAT 95 , Room Air, O2 Flow Rate . Vital Sign Comment: [] Latest Adair Fall Score: 85 Fall Risk: High Risk Safety Measures: Call light Within Reach, Bed Alarm Zone 1, Side Rails Side Rails x3, Bed position Low and Locked. Fall Precautions: Yellow Socks Door Sign y Patient Fall Education Report given to [].
[2020-12-01] MEDS: metroNIDAZOLE 500mg tab ORAL SCH (21:04)
[2020-12-01] MEDS: cefTRIAXone 1 GM in D5W 55 ML IVPB SCH (21:04)
[2020-12-01] MEDS ORDERED: Azithromycin 250mg tab ORAL SCH (22:00)
[2020-12-02] VITALS: BP 121/87
[2020-12-02 04:00] VITALS: BP 144/86
[2020-12-02] MEDS ORDERED: metroNIDAZOLE 250mg tab ONE (05:20)
[2020-12-02] MEDS: metroNIDAZOLE 500mg tab ORAL SCH ×2 (05:27→14:01)
--- NOTE | 2020-12-02 06:32 | General Progress Note ---
Subjective ROS Limited/Unobtainable: Yes Allergies: Coded Allergies: No Known Allergies (Unverified , 11/05/14) Objective Last 24 Hour Vital Signs Date Time Temp Pulse Resp B/P (MAP) Pulse Ox O2 Delivery O2 Flow Rate FiO2 12/02/20 04:00 97.4 79 17 144/86 (105) 98 12/02/20 00:00 97.1 79 18 121/87 (98) 96 12/01/20 21:00 Room Air 12/01/20 20:00 97.1 88 17 121/79 (93) 95 12/01/20 16:00 97.9 83 18 108/67 (81) 95 12/01/20 12:00 98.2 77 20 117/82 (94) 94 12/01/20 09:45 68 103/58 (73) 12/01/20 09:00 Room Air 12/01/20 09:00 68 103/58 12/01/20 08:00 98.0 70 18 116/69 (85) 97 Intake and Output 0 12/01/20 12/02/20 19:00 07:00 Intake Total 355 ml Balance 355 ml IV Total 55 ml Other 300 ml # Voids 4 2 Laboratory Tests 12/01/20 10:10: White Blood Count 3.7L, Red Blood Count 4.47L, Hemoglobin 12.9L, Hematocrit 40.5L, Mean Corpuscular Volume 90, Mean Corpuscular Hemoglobin 28.9, Mean Corpuscular Hemoglobin Concent 32.0, Red Cell Distribution Width 13.2, Platelet Count 195, Mean Platelet Volume 9.7, Neutrophils (%) (Auto) 55.4, Lymphocytes (%) (Auto) 36.8, Monocytes (%) (Auto) 5.1, Eosinophils (%) (Auto) 1.2, Basophils (%) (Auto) 1.4, Sodium Level 142, Potassium Level 3.3L, Chloride Level 106, Carbon Dioxide Level 30, Anion Gap 7, Blood Urea Nitrogen 11, Creatinine 0.8, Estimat Glomerular Filtration Rate > 60, Glucose Level 271H, Calcium Level 9.0 Height (Feet): 5 Height (Inches): 4.00 Weight (Pounds): 120 General Appearance: no apparent distress EENT: normal ENT inspection Neck: supple Cardiovascular: normal rate Respiratory/Chest: decreased breath sounds Abdomen: hypoactive bowel sounds Extremities: non-tender Assessment/Plan Assessment/Plan: ASSESSMENT: 1. Failure to thrive. 2. COVID pneumonia. 3. Rule out sepsis. 4. Dementia. 5. Dehydration. swallow eval>>>passed COVID check>>neg add marinol claorie count improved po intake hold peg plans for now will Tucker Jackson MD Dec 02, 2020 06:32
--- NOTE | 2020-12-02 07:05 | NUR ---
NURSE HAND-OFF: Important Events on Shift: hygiene, abx, turning positions Patient Status: Diet:regular pureed Pending Orders: Pending Results/Labs: Pending MD notification: Latest Vital Signs: Temperature 97.4 , Pulse 79 , B/P 144 /86 , Respiratory Rate 17 , O2 SAT 98 , Room Air, O2 Flow Rate . Vital Sign Comment: Latest Adair Fall Score: 85 Fall Risk: High Risk Safety Measures: Call light Within Reach, Bed Alarm Zone 1, Side Rails Side Rails x3, Bed position Low and Locked. Fall Precautions: Yellow Socks Door Sign Patient Fall Education Report given to BEVERLY Molina.
[2020-12-02 08:00] VITALS: BP 136/86
[2020-12-02] MEDS: Dronabinol 2.5mg Cap ORAL SCH ×2 (10:02→17:54)
[2020-12-02] MEDS: dexAMETHasone 10mg/ml Inj IV SCH (10:03)
[2020-12-02 11:11] LABS: BASOPHILS % (AUTO) 1.1 % (0.0-2.0); EOSINOPHILS % (AUTO) 2.1 % (0.0-3.0); HEMATOCRIT 42.8 % (42.0-52.0); HEMOGLOBIN 11.8 G/DL (14.2-18.0); LYMPHOCYTES % (AUTO) 34.1 % (20.0-45.0); MEAN CORPUSCULAR VOLUME 92 FL (80-99); MONOCYTES % (AUTO) 7.4 % (1.0-10.0); NEUTROPHILS % (AUTO) 55.2 % (45.0-75.0); PLATELET COUNT 215 K/UL (150-450); RED BLOOD COUNT 4.63 M/UL (4.70-6.10); RED CELL DISTRIBUTION WIDTH 13.4 % (11.6-14.8); WHITE BLOOD COUNT 5.9 K/UL (4.8-10.8)
[2020-12-02 11:26] LABS: ANION GAP 5 mmol/L (5-15); BLOOD UREA NITROGEN 20 mg/dL (7-18); CALCIUM 8.9 MG/DL (8.5-10.1); CARBON DIOXIDE 30 MMOL/L (21-32); CHLORIDE 106 MMOL/L (98-107); CREATININE 0.8 MG/DL (0.55-1.30); POTASSIUM 3.3 MMOL/L (3.5-5.1); SODIUM 141 MMOL/L (136-145)
[2020-12-02 12:00] VITALS: BP 135/82
--- NOTE | 2020-12-02 12:51 | NUR ---
RD ASSESSMENT & RECOMMENDATIONS SEE CARE ACTIVITY FOR COMPLETE ASSESSMENT DAILY ESTIMATED NEEDS: Needs based on cardiac, 67kg 25-30 kcals/kg total kcals 1-1.5 g protein/kg 67-100 g total protein 25-30 mL/kg total fluid mLs NUTRITION DIAGNOSIS: Swallowing difficulty R/T dysphagia as evidenced by seen by LOAN AUDITOR w/ rec for pureed moist texture diet w/ thin liquids. CURRENT DIET:REGULAR/ pureed moist w/ thin liquids PO DIET RECOMMENDATIONS: Maintain liberalized regular/ texture per LOAN AUDITOR + Ensure Enlive TID w/ meals ADDITIONAL RECOMMENDATIONS: 1) Ensure TID w/ meals added (Change to Glucerna w/ elev BGs) 2) Monitor BGs w/ Decadron, need for carb controlled diet and/or NISS 3) Calibrated bedscale wt 4) F/up w/ Wilner count x 48 hrs- incomplete documentation 5) MVI x 1 ------ PO Intake 11/29: NPO, 50% 100% 11/30: 25% 75% 75%+Ensure Enlive 12/01: 100% 75% 25% ---- 48 hour kcal count; 3/6 menu tickets available, only from 11/30/20. 2 menus documented incorrectly. Unable to evaluate po intake w/ 1 menu documented accurately, and 5 not available. ---- From above RN po intake documentation, po intake is averaging 65%.
--- NOTE | 2020-12-02 15:30 | NUR ---
*-*DISCHARGE PLAN*-* PATIENT HAS BEEN ACCEPTED AND WILL BE DISCHARGED TO: [facility] P: [phone] FOR NURSE TO NURSE REPORT ROOM# 122 [facility] SET FOR 5PM S/W [place]TH[place] [id number].
--- NOTE | 2020-12-02 15:48 | NUR ---
*-*DISCHARGE PLANNING*-* PATIENT HAS BEEN ACCEPTED AND WILL BE DISCHARGED TO: [facility] P: [phone] FOR NURSE TO NURSE REPORT ROOM# 122 [facility] SET FOR WILL CALL [id number].
[2020-12-02 16:00] VITALS: BP 102/57
[2020-12-02] MEDS ORDERED: ACETAMINOPHEN325 M1 ORAL (16:01)
[2020-12-02] MEDS ORDERED: AMLODIPINE BESYL5 MG ORAL (16:02)
[2020-12-02] MEDS ORDERED: CATAPRES0.1 MG ORAL (16:03)
[2020-12-02] MEDS ORDERED: INSULIN AS100 UNIT/2 SQ (16:03)
[2020-12-02] MEDS ORDERED: METFORMIN HCL500 M1 ORAL (16:04)
--- NOTE | 2020-12-02 16:05 | General Progress Note ---
Subjective Allergies: Coded Allergies: No Known Allergies (Unverified , 11/05/14) Subjective non verabal bed bound doing ok pureed diet Objective Last 24 Hour Vital Signs Date Time Temp Pulse Resp B/P (MAP) Pulse Ox O2 Delivery O2 Flow Rate FiO2 12/02/20 12:00 97.2 98 18 135/82 (99) 96 12/02/20 10:03 85 136/86 12/02/20 09:00 Room Air 12/02/20 08:00 97.3 85 18 136/86 (103) 95 12/02/20 04:00 97.4 79 17 144/86 (105) 98 12/02/20 00:00 97.1 79 18 121/87 (98) 96 12/01/20 21:00 Room Air 12/01/20 20:00 97.1 88 17 121/79 (93) 95 Intake and Output 12/01/20 12/02/20 19:00 07:00 Intake Total 355 ml Balance 355 ml IV Total 55 ml Other 300 ml # Voids 4 2 Laboratory Tests 12/02/20 10:47: White Blood Count 5.9#, Red Blood Count 4.63L, Hemoglobin 11.8L, Hematocrit 42.8, Mean Corpuscular Volume 92, Mean Corpuscular Hemoglobin 25.5L, Mean Corpuscular Hemoglobin Concent 27.5L, Red Cell Distribution Width 13.4, Platelet Count 215, Mean Platelet Volume 9.8, Neutrophils (%) (Auto) 55.2, Lymphocytes (%) (Auto) 34.1, Monocytes (%) (Auto) 7.4, Eosinophils (%) (Auto) 2.1, Basophils (%) (Auto) 1.1, Sodium Level 141, Potassium Level 3.3L, Chloride Level 106, Carbon Dioxide Level 30, Anion Gap 5, Blood Urea Nitrogen 20H, Creatinine 0.8, Estimat Glomerular Filtration Rate > 60, Glucose Level 275H, Calcium Level 8.9 Height (Feet): 5 Height (Inches): 4.00 Weight (Pounds): 120 General Appearance: alert EENT: PERRL/EOMI Neck: supple Cardiovascular: regular rhythm Respiratory/Chest: lungs clear Abdomen: non tender, soft Extremities: non-tender Assessment/Plan Assessment/Plan: aloc better failure of thrive uti hx covid dementia hypokalemia resolved soft diet with feeder dc abx pt/ot dw cm dc to [facility] Bui MD Dec 02, 2020 16:05
[2020-12-02] MEDS ORDERED: METHADONE HCL10 MG ORAL (16:06)
[2020-12-02] MEDS ORDERED: JANUVIA50 MG ORAL (16:41)
--- NOTE | 2020-12-02 18:35 | NUR ---
NURSE NOTES: patient is being transferred to [facility] by [facility]. Report given to BEVERLY Arana. Patient signed off belongings list and left with all his belongings. Taken IV access off, no bleeding after site compression. Given discharge packet to EMT, including medication reconciliation. Patient has stable VS and condition, no complaint of pain or discomfort. No NOK listed or given info by patient.
--- NOTE | 2020-12-04 02:13 | Cardiology Report ---
APPROVED REPORT EKG Measurement Heart [id number] <Conclusion> Sinus rhythm with occasional premature ventricular complexes Rightward axis Borderline ECG
--- NOTE | 2020-12-05 15:08 | Discharge Summary ---
Discharge Summary Discharge Summary _ Date of admission: 11/27/2020 Date of discharge: 12/02/[address] Mcmanus History of Present Illness and Brief Hospital Course Mr. Heath Palma is a 75-year-old male with past medical history of hypertension, and substance abuse, who presented to the ED for evaluation of altered mental status and fall. Patient was found on the floor at home next to his bed by his grandson. This was an unwitnessed event. Patient denied neck pain, tenderness, chest pain, palpitations, cough, or shortness of breath. Patient reported he has history of diabetes mellitus but denied taking medications for this condition. Initial laboratory studies revealed hyperglycemia, and pyuria. Patient was given IV fluids in the ER and was admitted to the hospital for further management. Head CT was negative for acute intracranial bleed or mass-effect. Given some signs of malnutrition, he was evaluated by a speech therapist. Patient passed the swallow eval. As such, the plan for PEG placement was held. Patient tested negative for COVID-19 PCR on 11/28/2020. Patient was found to have hypokalemia and his potassium was replaced chest x-ray showed no acute pulmonary disease. Throughout his hospitalization, patient's medical condition remained stable. Patient began tolerating soft diet with the assistance of a feeder. Patient received antibiotics for UTI. Patient was medically stable for discharge on 12/02/2020 and was discharged back to SNF. Consultants: Gastroenterology Dr. Ulloa Discharge Condition Improved and stable Discharge Diet Soft diet with feeder Final diagnoses Metabolic encephalopathy Malnutrition UTI Dementia Hypokalemia Dehydration I have been assigned to dictate discharge summary for this account. I was not involved in the patient's management Olayinka Lopez Dec 05, 2020 15:08
== END 2020-12-02 18:40 | DRG 689 ==
LOC: EMR 15:00 → 4E 15:40 → EDBEDREQ 16:57 → 4E 11-30 18:21
DX: N39.0 Urinary tract infection, site not specified (principal); G93.41 Metabolic encephalopathy; E46 Unspecified protein-calorie malnutrition; E87.6 Hypokalemia; Z86.16 Personal history of COVID-19; R62.7 Adult failure to thrive; E86.0 Dehydration; F03.90 Unspecified dementia, unspecified severity, without behavioral disturbance, psychotic disturbance, mood disturbance, and anxiety; R53.1 Weakness; Z91.81 History of falling; Z68.24 Body mass index [BMI] 24.0-24.9, adult
CPT/HCPCS: 36415; 70450; 71045; 80048; 80053; 81003; 82962; 84484; 85025; 93005; 96360; 99285; J7030; J8499